=== PATIENT | female | born 1965 | race Caucasian/White ===

== ENCOUNTER 2019-06-14 07:29 | Outpatient (CLI) | payer OTHER, SELFPAY ==
[2019-06-14 07:44] LABS: Basophils Absolute Auto 0.04 K/mm3 (0.00-0.10); Basophils Percent Auto 0.5 % (0.0-1.0); Eosinophils Absolute Auto 0.21 K/mm3 (0.02-0.50); Eosinophils Percent Auto 2.8 % (1.0-6.0); Hemoglobin 12.8 g/dL (12.0-15.0); Immature Granulocyte Absolute 0.02 K/mm3 (0.00-0.00); Immature Granulocyte Percent A 0.3 % (0.0-0.0); Lymphocytes Absolute Auto 3.77 K/mm3 (1.10-4.50); Lymphocytes Percent Auto 50.6 % (18.0-42.0); Mean Corpuscular HGB Conc 33.7 g/dL (32.0-36.0); Mean Corpuscular Hemoglobin 35.5 pg (27.0-31.0); Mean Corpuscular Volume 105.3 fL (78.0-102.0); Mean Platelet Volume 10.4 fl (9.2-11.8); Monocytes Absolute Auto 0.58 K/mm3 (0.10-0.90); Monocytes Percent Auto 7.8 % (2.0-11.0); Neutrophils Absolute Auto 2.8 K/mm3 (1.7-7.2); Platelet Count Result 229 K/mm3 (150-420); Red Blood Count 3.61 M/mm3 (4.20-5.40); White Blood Count 7.5 K/mm3 (4.8-10.8)
[2019-06-14 08:02] LABS: Creatinine Urine 96.28 mg/dL (40-278); MALB Creatinine Ratio 8.7 mg/g (0-30); Microalbumin Urine Random 8.4 mg/L
[2019-06-14 08:44] LABS: Anion Gap 13.5 mmol/L (7-16); Blood Urea Nitrogen 14 mg/dL (7-18); Calcium 9.5 mg/dL (8.5-10.1); Carbon Dioxide 29 mmol/L (21-32); Chloride 103 mmol/L (98-108); Cholesterol 237 mg/dL (0-200); Estimated Glomerular Filt Rate > 60; Glucose 113 mg/dL (70-99); HDL Direct 59 mg/dL (40-60); LDL Cholesterol Calculated 144 mg/dL (<130); Osmolality Calculated 293 mOsm/kg (285-295); Potassium 4.5 mmol/L (3.5-5.1); Sodium 141 mmol/L (136-145); Triglycerides 172 mg/dL (0-150)
[2019-06-14 14:21] LABS: Vitamin B12 438 pg/mL (193-986)
[2019-06-14 14:23] LABS: Folic Acid > 20.0 ng/mL (8.6->20)
[2019-06-18 12:12] LABS: Vitamin D 25 Hydroxy 29 ng/mL (30-100)
== END 2019-06-14 07:30 | disposition home or self-care (01) ==
LOC: CHSLAB 07:33
PROVIDERS: PCP Family Medicine; Visit Provider Family Medicine
DX: E55.9 Vitamin D deficiency, unspecified (principal); I10 Essential (primary) hypertension; E53.8 Deficiency of other specified B group vitamins
CPT/HCPCS: 36415; 80048; 80061; 82043; 82306; 82607; 82746; 85025

== ENCOUNTER 2020-06-25 09:04 | Outpatient (RCR) | payer OTHER, SELFPAY ==
--- NOTE | 2020-06-25 10:10 | PTOPEVAL ---
Thank you for referring Katelyn Navarro to [facility]– [place].? The patient is scheduled to be seen for therapy? __2__x/week for 8 visits. Please review, sign, date and return this plan of care LIZZY. I agree with and certify that the following plan of care is medically necessary. Referring Physician Date Admitting Provider: Attending Provider: Vasquez Packer MD Referring Provider: *PT Outpatient Evaluation Start: 06/25/20 09:06 Freq: Status: Active Protocol: Document 06/25/20 09:06 [facility]INI (Rec: 06/25/20 10:10 SRINI [id number]) Therapy Assessment Status Assessment Status Assessment Status Evaluation Outpatient Past Medical History Cardiovascular History Hx Hypertension Yes Musculoskeletal History Hx Back Pain Yes Hx Fractures Yes: RIGHT ANKLE 10/2017 Reproductive History Hx Hysterectomy Yes: PARTIAL Pain History Has Past Pain Affected Your Daily Life Yes History of Long-Term Prescription Pain Yes: USE OF HYDROCODONE Medication Use (Opiates) ROUTINELY FOR CHRONIC NECK PAIN. Effective Methods of Pain Control TRIGGER POINT THERAPY TO NECK NEEDED, EPIDURAL INJECTIONS TO NECK PRN Other History Hx Other Surgeries Yes: RIGHT HAND Evaluation Information Problem Diagnosis cervical radiculopathy Onset 06/23/20 Subjective Information Pt. reports having 10 years of Query Text:As Reported By Patient/ worsening neck pain. She Family reports that she noted a recent increase in pain without any incident. Pt. reports that she has spent the past 1 1/2 years caring for her mother in law which she noted an increase in pain after. She states that she has also been less active due to caring for her mother in law. 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 She reports that she feels a lump on the left side of the neck and pain will shoot into the left arm. 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 She states that her goal is to de
--- NOTE | 2020-08-23 08:13 | PTOPEVAL ---
Thank you for referring Katelyn Navarro to [facility].? The patient is scheduled to be seen for therapy? ____x/week for ___ weeks. Please review, sign, date and return this plan of care LIZZY. I agree with and certify that the following plan of care is medically necessary. Referring Physician Date Admitting Provider: Attending Provider: Vasquez Packer MD Referring Provider: *PT Outpatient Evaluation Start: 06/25/20 09:06 Freq: Status: Active Protocol: Document 08/22/20 17:15 [facility] (Rec: 08/23/20 08:13 [facility] [id number]) Therapy Assessment Status Assessment Status Assessment Status Re-evaluation Outpatient Past Medical History Cardiovascular History Hx Hypertension Yes Musculoskeletal History Hx Back Pain Yes Hx Fractures Yes: RIGHT ANKLE 10/2017 Reproductive History Hx Hysterectomy Yes: PARTIAL Pain History Has Past Pain Affected Your Daily Life Yes History of Long-Term Prescription Pain Yes: USE OF HYDROCODONE Medication Use (Opiates) ROUTINELY FOR CHRONIC NECK PAIN. Effective Methods of Pain Control TRIGGER POINT THERAPY TO NECK NEEDED, EPIDURAL INJECTIONS TO NECK PRN Other History Hx Other Surgeries Yes: RIGHT HAND Evaluation Information Problem Diagnosis cervical radiculopathy Onset 06/23/20 Subjective Information patient reports she has been Query Text:As Reported By Patient/ away from therapy for several Family weeks due to work and other responsibilities. she reports prior to stepping away from therapy she was having some increased soreness with her exercises. patient reports a few times she has popped her own neck at home and it has hurt her more. Pain Assessment Timing of Pain Assessment Timing of Pain Assessment Assessment Pain Scale Pain Scale Used Numeric (1 - 10) Self Report Pain Assessment Left Neck Reported Pain Level 6 Pain Score Pain Score 6: Self Report Interventions Used Interventions Used By Clinicians Electrical Stimulation, Exercise,Heat Cervical and Lumbar ROM Cervical ROM Cervical Flexion (0-60) 55 Query Text:Active in Degrees Cervical Extension (0-70) 55 Query Text:Active in Degrees Cervical Lateral Flexion Right (0-50) 40 Query Text:Active in Degrees Cervical Lateral Flexion Left (0-50) 30 Query Text:Active in Degrees Cervical R
== END 2020-08-22 23:59 | disposition home or self-care (01) ==
LOC: CHSPT 09:04
PROVIDERS: PCP Family Medicine; Visit Provider Family Medicine
DX: M54.12 Radiculopathy, cervical region (principal)
CPT/HCPCS: 97014; 97110; 97140; 97161; G0283

== ENCOUNTER 2020-10-19 07:00 | Outpatient (CLI) | payer OTHER, SELFPAY ==
[2020-10-19 07:17] LABS: Basophils Absolute Auto 0.05 K/mm3 (0.00-0.10); Basophils Percent Auto 0.4 % (0.0-1.0); Eosinophils Absolute Auto 0.18 K/mm3 (0.02-0.50); Eosinophils Percent Auto 1.4 % (1.0-6.0); Hematocrit 40.7 % (35.0-49.0); Hemoglobin 13.9 g/dL (12.0-15.0); Immature Granulocyte Absolute 0.05 K/mm3 (0.00-0.00); Immature Granulocyte Percent A 0.4 % (0.0-0.0); Lymphocytes Absolute Auto 2.94 K/mm3 (1.10-4.50); Lymphocytes Percent Auto 22.2 % (18.0-42.0); Mean Corpuscular HGB Conc 34.2 g/dL (32.0-36.0); Mean Corpuscular Hemoglobin 34.2 pg (27.0-31.0); Mean Corpuscular Volume 100.2 fL (78.0-102.0); Mean Platelet Volume 9.4 fl (9.2-11.8); Monocytes Absolute Auto 0.76 K/mm3 (0.10-0.90); Monocytes Percent Auto 5.7 % (2.0-11.0); Neutrophils Absolute Auto 9.3 K/mm3 (1.7-7.2); Neutrophils Percent Auto 69.9 % (50.0-70.0); Platelet Count Result 387 K/mm3 (150-420); Red Blood Count 4.06 M/mm3 (4.20-5.40); Red Cell Distribution Width 11.9 % (11.6-14.4); White Blood Count 13.3 K/mm3 (4.8-10.8)
[2020-10-19 07:40] LABS: Creatinine Urine 120.34 mg/dL (40-278); MALB Creatinine Ratio 11.7 mg/g (0-30); Microalbumin Urine Random 14.2 mg/L
[2020-10-19 08:29] LABS: Alanine Aminotransferase 32 U/L (14-59); Albumin Level 4.1 g/dL (3.4-5.0); Alkaline Phosphatase 104 U/L (46-116); Anion Gap 12 mmol/L (8-16); Aspartate Amino Transferase 19 U/L (15-37); Bilirubin,Total 0.2 mg/dL (0.00-1.00); Blood Urea Nitrogen 9 mg/dL (7-18); Calcium 9.4 mg/dL (8.5-10.1); Carbon Dioxide 28 mmol/L (21-32); Chloride 101 mmol/L (98-108); Cholesterol 310 mg/dL (0-200); Estimated Glomerular Filt Rate > 60; Glucose 119 mg/dL (70-99); HDL Direct 48 mg/dL (40-60); LDL Cholesterol Calculated 166 mg/dL (<130); Osmolality Calculated 291 mOsm/kg (285-295); Potassium 4.2 mmol/L (3.5-5.1); Sodium 141 mmol/L (136-145); Thyroid Stimulating Hormone 0.93 uIU/mL (0.36-3.74); Total Protein 7.5 g/dL (6.4-8.2); Triglycerides 482 mg/dL (0-150)
[2020-10-19 08:37] LABS: LDL Cholesterol Direct 174 mg/dL (0-130)
[2020-10-23 09:53] LABS: Hemoglobin A1C 5.5 % (<5.7)
[2020-10-25 10:51] LABS: Vitamin D 25 Hydroxy 37 ng/mL (30-100)
== END 2020-10-19 07:01 | disposition home or self-care (01) ==
PROVIDERS: PCP Family Medicine; Visit Provider Family Medicine
DX: I10 Essential (primary) hypertension (principal); R73.01 Impaired fasting glucose
CPT/HCPCS: 36415; 80053; 80061; 82043; 82306; 83036; 83721; 84443; 85025

== ENCOUNTER 2020-12-19 07:32 | Outpatient (CLI) | payer OTHER, SELFPAY ==
--- NOTE | ~2020-12-19 | MR_ITS ---
EXAMINATION: MR cervical spine wo con EXAM DATE: 12/19/2020 08:27 INDICATION: Cervical Radiculopathy neck, bilateral arm pain. TECHNIQUE: Multi-sequential, multiplanar MR images of the cervical spine were obtained without contra st. Axial T2, axial T2 MERGE sequence. Sagittal T1, T2, T2 fat saturation images also obtained. Com parison is made to prior examination from 03/24/2018. FINDINGS: There is moderate disc disease at C5-6, mild to moderate at C6-7. The vertebral bodies are aligned in the AP dimension. The spinal cord signal intensity and intrinsic morphology is normal. Ce rvicomedullary junction is normal in appearance. There are no suspicious marrow signal abnormalities. Paraspinal soft tissue is unremarkable. Level by level evaluation: C2-C3: Disc does not extend beyond the endplate margin. Uncovertebral joint arthropathy: Mild left. Facet joint arthropathy: Mild bilateral. Neural foraminal stenosis: No stenosis. Central canal stenosis: No stenosis. C3-C4: Disc does not extend beyond the endplate margin. Uncovertebral joint arthropathy: Mild bilateral. Facet joint arthropathy: Mild to moderate bilateral. Neural foraminal stenosis: No stenosis. Central canal stenosis: No stenosis. C4-C5: Disc does not extend beyond the endplate margin. Uncovertebral joint arthropathy: Mild bilateral. Facet joint arthropathy: Mild to moderate bilateral. Neural foraminal stenosis: Mild to moderate left. Central canal stenosis: No stenosis. C5-C6: There is a mild diffuse disc bulge. Uncovertebral joint arthropathy: Moderate left, mild right. Facet joint arthropathy: Mild to moderate bilateral. Neural foraminal stenosis: Moderate to severe left, no right. Central canal stenosis: Mild. C6-C7: There is a minimal diffuse disc bulge. Uncovertebral joint arthropathy: Mild to moderate bilateral. Facet joint arthropathy: Mild bilateral. Neural foraminal stenosis: Moderate left, mild right. Central canal stenosis: No stenosis. C7-T1: Disc does not extend beyond the endplate margin. Uncovertebral joint arthropathy: Mild bilateral. Facet joint arthropathy: Mild bilateral. Neural foraminal stenosis: No stenosis. Central canal stenosis: No stenosis. Slight progression compared to prior study. IMPRESSION: Moderate midcervical spondylosis. Reviewed, dictated and finalized at location B.
== END 2020-12-19 07:33 | disposition home or self-care (01) ==
LOC: CHSIMG 07:34
PROVIDERS: PCP Family Medicine; Visit Provider Family Medicine
DX: M47.22 Other spondylosis with radiculopathy, cervical region (principal)
CPT/HCPCS: 72141

== ENCOUNTER 2020-12-29 03:15 | Emergency (ER) | payer OTHER, SELFPAY ==
--- NOTE | ~2020-12-29 | XR_ITS ---
EXAMINATION: XR chest 1V portable EXAM DATE: 12/29/2020 04:06 INDICATION: UPPER LEFT chest pain INTO SHOULDER . TECHNIQUE: Portable AP frontal chest x-ray was obtained. There is no prior study for comparison. FINDINGS: The lungs are clear. There are no pleural effusions. The cardiomediastinal silhouette is within normal limits. There is no pneumothorax suspected. The bones and soft tissues are unremarkab le. IMPRESSION: No acute cardiopulmonary findings. Reviewed, dictated and finalized at location A.
--- NOTE | 2020-12-29 03:18 | ECG_ITS ---
Measurements Intervals [place] Rate: 84 P: 70 WA: 181 QRS: 48 QRSD: 93 T: 72 QT: 390 QTc: 462 Interpretive Statements SINUS RHYTHM BASELINE ARTIFACT- I, II, III, AVR, AVL, AVF, V1-V2 BORDERLINE ECG Electronically Signed On 12-31-2020 7:51:51 CDT by Ashu Hawthorne D.O.
[2020-12-29 03:26] VITALS: BP 118/68; PULSE 68; RESP 18; TEMP 36.6; O2SAT 98
[2020-12-29] MEDS: SODIUM CHLORIDE 0.9% IV 500 ML 999 ML IV CONT (03:50)
[2020-12-29] MEDS: ASPIRIN 325 MG ENTERIC TABLET PO (03:51)
--- NOTE | 2020-12-29 03:51 | PC.NURSE ---
0351 Nitro held, pain free currently
--- NOTE | 2020-12-29 03:53 | ED.GENADULT ---
HPI - General Adult General Chief complaint: Unspecified Stated complaint: Pain sholder Time Seen by Provider: 12/29/20 03:28 Source: patient and RN notes reviewed Mode of arrival: ambulatory Limitations: no limitations History of Present Illness complaint: left chest pain x this early am. prior similar episode 1 week ago. Onset (ago): hour(s) (1) Location: chest Radiation: back, neck and extremity (left upper extremity) Severity: moderate Severity scale (1-10): 7 Quality: aching and dull Pain Consistency: constant Relieving factors: none Exacerbating factors: none Associated symptoms: other (left back, neck and left upper limb pain and tingling.) Related Data Home Medications Medication Instructions Recorded Confirmed amlodipine 10 mg PO DAILY 03/16/19 12/29/20 cyclobenzaprine 10 mg PO DAILY 03/16/19 12/29/20 gabapentin 300 mg PO DAILY 03/16/19 12/29/20 hydrocodone-acetaminophen 1 tablet PO PRN 03/16/19 12/29/20 lisinopril-hydrochlorothiazide 1 tablet PO DAILY 03/16/19 12/29/20 lorazepam 0.5 mg PO HS 03/16/19 12/29/20 Allergies Allergy/AdvReac Type Severity Reaction Status Date / Time No Known Allergies Allergy Verified 03/16/19 07:47 Review of Systems Review of Systems: All systems reviewed & are unremarkable except as noted in HPI and below Cardiovascular: Cardiovascular: Reports as per HPI [facility] Past Medical History Medical History (Updated 12/29/20 @ 06:55 by Fiorella Dalton MD) Hypertension Neck arthritis Family History Family History (Updated 12/15/13 @ 07:13 by DOCTOR UNKNOWN) Father Hypertension Grandparent Hypertension Social History Social History Smoking status: Light tobacco smoker Smoking end date: 04/20/14 Alcohol intake: current Exam Const: General: cooperative and healthy appearing Nutritional Appearance: well nourished Orientation/consciousness: patient oriented x3 Limitations: no limitations HENMT: Head: normocephalic and atraumatic Ears: hearing grossly normal bilaterally and TM's normal bilaterally General nose exam: Normal external nose present and Normal nares present Face and sinus: normal facial exam Mouth: Yes Normal oral and palatal mucosa present, Yes lip normal, Yes tongue normal and Yes moist mucous membranes Teeth and gingiva: dentition normal Throat: posterior oropharynx normal Eyes: General: appearance normal, both eyes and all related structures Eyelids: eyelids normal Conjunctivae: conjunctivae normal Sclera: sclerae normal Cornea: corneas normal Pupils: Equal, round and reactive pupils present EOM: EOMs intact bilaterally Neck: Neck: normal visual inspection and full ROM Chest: Chest palpation & inspection: normal inspection of the chest Resp: Effort & Inspection: normal respiratory effort and able to speak in complete sentences Auscultation: clear to auscultation bilaterally Percussion: percussion normal Cardio: Jugular venous distension: no JVD Rate: regular rate Rhythm: regular rhythm Peripheral pulses: Peripheral pulses 2+ throughout GI: Inspection: normal to inspection GI Palp: Yes Soft to palpation Auscultation: normal bowel sounds Back/Spine/Pelvis: Back: no CVA tenderness Cervical Spine: cervical ROM normal Thoracic/Lumbar Spine: thoracic and lumbar spine normal to inspection Skin: General skin exam: normal color and no rashes or lesions noted Neuro: General: oriented to person, oriented to place and oriented to time Cranial nerves: Yes CN's II-XII intact bilaterally, Yes Equal, round and reactive pupils present and Yes Bilaterally intact EOM present Cognition (Neuro): normal cognition Speech: normal speech Motor exam (neuro): 5/5 motor strength present throughout Sensory Exam: normal sensation Extrem: General: normal to inspection, full ROM and no pedal edema Psych: Appearance: grossly normal and well kempt Mental Status: mental status grossly normal Speech and movement: Normal speech and movem
[2020-12-29 04:09] LABS: Basophils Absolute Auto 0.06 K/mm3 (0.00-0.10); Basophils Percent Auto 0.6 % (0.0-1.0); Hematocrit 38.3 % (35.0-49.0); Hemoglobin 13.5 g/dL (12.0-15.0); Immature Granulocyte Absolute 0.03 K/mm3 (0.00-0.00); Immature Granulocyte Percent A 0.3 % (0.0-0.0); Lymphocytes Absolute Auto 4.09 K/mm3 (1.10-4.50); Lymphocytes Percent Auto 40.2 % (18.0-42.0); Mean Corpuscular HGB Conc 35.2 g/dL (32.0-36.0); Mean Corpuscular Hemoglobin 34.5 pg (27.0-31.0); Mean Platelet Volume 9.8 fl (9.2-11.8); Monocytes Percent Auto 7.9 % (2.0-11.0); Platelet Count Result 284 K/mm3 (150-420); Red Blood Count 3.91 M/mm3 (4.20-5.40); Red Cell Distribution Width 12.1 % (11.6-14.4); White Blood Count 10.2 K/mm3 (4.8-10.8)
[2020-12-29 04:25] LABS: Alanine Aminotransferase 38 U/L (14-59); Albumin Level 4.1 g/dL (3.4-5.0); Alkaline Phosphatase 93 U/L (46-116); Anion Gap 13 mmol/L (8-16); Aspartate Amino Transferase 29 U/L (15-37); Bilirubin,Total 0.4 mg/dL (0.00-1.00); Blood Urea Nitrogen 33 mg/dL (7-18); Calcium 9.3 mg/dL (8.5-10.1); Carbon Dioxide 23 mmol/L (21-32); Chloride 97 mmol/L (98-108); Estimated CRCL calculation 30 ml/min; Estimated Glomerular Filt Rate 33; Glucose 106 mg/dL (70-99); Lactic Acid Reflex 0.4 mmol/L (0.4-2.0); Osmolality Calculated 283 mOsm/kg (285-295); Potassium 3.4 mmol/L (3.5-5.1); Sodium 133 mmol/L (136-145); Total Protein 7.8 g/dL (6.4-8.2); Troponin I 26.3 ng/L (0.00-60.4)
[2020-12-29 04:29] LABS: SARS-CoV-2 Ag Negative (Negative)
[2020-12-29 04:30] LABS: Ethanol < 3 mg/dL (0-6)
[2020-12-29 04:46] VITALS: BP 116/60; PULSE 70; RESP 18
[2020-12-29 05:31] VITALS: BP 120/66; PULSE 78; RESP 16; O2SAT 96
[2020-12-29 06:20] VITALS: BP 116/80; PULSE 70; RESP 18; TEMP 36.6; O2SAT 96
--- NOTE | 2020-12-29 06:22 | PC.NURSE ---
cont pain free, on cell phone talking & laughing
[2020-12-29 06:57] VITALS: BP 115/80; PULSE 60; RESP 16; TEMP 36.4; O2SAT 99
== END 2020-12-29 07:01 | disposition home or self-care (01) ==
PROVIDERS: Emergency Provider Emergency Medicine; PCP Family Medicine
DX: I20.9 Angina pectoris, unspecified (principal); M47.812 Spondylosis without myelopathy or radiculopathy, cervical region; Z20.822 Contact with and (suspected) exposure to COVID-19
CPT/HCPCS: 36415; 71045; 80053; 80307; 83605; 84484; 85025; 87426; 93005; 99283; 99284; A9270; C9803; J7040

== ENCOUNTER 2021-01-28 09:10 | Outpatient (CLI) | payer OTHER, SELFPAY ==
--- NOTE | 2021-01-28 09:15 | EST_ITS ---
Patient Info Name: Katelyn Navarro Age: 56 years : 1965 Gender: Female Ht: 65 in Wt: 149 lbs BSA: 1.77 m2 HR: 92 bpm BP: 144 / 89 mmHg Heart Rhythm: Sinus Rhythm Technical Quality: Excellent Exam Date: 01/28/2021 9:29 AM Exam Location: [facility] Patient Status: Outpatient Admit Date: 01/28/2021 Staff Ordering Physician: Vasquez Packer MD Attending Provider: Vasquez Packer MD Exercise Technologist: Kay Steele CRT Exercise Physician: Michelle Freitas CEP Exam Type: CA stress test treadmill Study Info Indications AtypicalChestPain - An exercise stress test was performed. History/Risk Factors Hypertension: Yes Tobacco Use: Former Dialysis: None History/Risk Factors HTN. Former Smoker (quit 2011). Summary 1. 1. Negative Toribio exercise stress test for ischemic ST changes by ECG criteria. 2. 2. Good functional capacity, achieving 10 METs of workload. 3. 3. Baseline hypertension with hypertensive response to exercise. 4. 4. Appropriate HR response to exercise. 5. 5. Appropriate HR recovery at 1 minute post exercise. 6. 6. No imaging with stress testing. Protocol: Toribio Stress ECG Details Stage: REST Duration (min): 1 min : 44 sec Speed (mph): 0.0 Grade (%): 0 HR (bpm): 92 SBP (mmHg): 144 DBP (mmHg): 89 METS: --- Stage: REST Duration (min): 2 min : 39 sec Speed (mph): 0.0 Grade (%): 0 HR (bpm): 96 SBP (mmHg): 144 DBP (mmHg): 89 METS: --- Stage: STAGE 1 Duration (min): 1 min : 0 sec Speed (mph): 1.7 Grade (%): 10 HR (bpm): 110 SBP (mmHg): 144 DBP (mmHg): 89 METS: --- Stage: STAGE 1 Duration (min): 2 min : 0 sec Speed (mph): 1.7 Grade (%): 10 HR (bpm): 125 SBP (mmHg): 144 DBP (mmHg): 89 METS: --- Stage: STAGE 1 Duration (min): 3 min : 0 sec Speed (mph): 1.7 Grade (%): 10 HR (bpm): 130 SBP (mmHg): 186 DBP (mmHg): 92 METS: --- Stage: STAGE 2 Duration (min): 1 min : 0 sec Speed (mph): 2.5 Grade (%): 12 HR (bpm): 138 SBP (mmHg): 186 DBP (mmHg): 92 METS: --- Stage: STAGE 2 Duration (min): 2 min : 0 sec Speed (mph): 2.5 Grade (%): 12 HR (bpm): 146 SBP (mmHg): 186 DBP (mmHg): 92 METS: --- Stage: STAGE 2 Duration (min): 3 min : 0 sec Speed (mph): 2.5 Grade (%): 12 HR (bpm): 152 SBP (mmHg): 201 DBP (mmHg): 95 METS: --- Stage: STAGE 3 Duration (min): 1 min : 0 sec Speed (mph): 3.4 Grade (%): 14 HR (bpm): 156 SBP (mmHg): 201 DBP (mmHg): 95 METS: --- Stage: STAGE 3 Duration (min): 2 min : 0 sec Speed (mph): 3.4 Grade (%): 14 HR (bpm): 162 SBP (mmHg): 201 DBP (mmHg): 95 METS: --- Stage: STAGE 3 Duration (min): 3 min : 0 sec Speed (mph): 3.4 Grade (%): 14 HR (bpm): 163 SBP (mmHg): 197 DBP (mmHg): 91 METS: ---
== END 2021-01-28 09:11 | disposition home or self-care (01) ==
LOC: CHSCARD 09:13
PROVIDERS: PCP Family Medicine; Visit Provider Family Medicine
DX: R07.9 Chest pain, unspecified (principal); F41.9 Anxiety disorder, unspecified
CPT/HCPCS: 93017

== ENCOUNTER 2021-04-30 09:49 | Outpatient (CLI) | payer OTHER, SELFPAY ==
--- NOTE | ~2021-04-30 | MR_ITS ---
EXAMINATION: MR brain/brain stem wo con DATE: 04/30/2021 10:37 INDICATION: Frontoparietal headache. TECHNIQUE: Magnetic resonance imaging (MRI) of the brain and brainstem was performed without intraven ous contrast. Sequences included sagittal and axial T1-weighted FSE, axial diffusion-weighted FS EPI, axial T2*-weighted GRE, axial T2-weighted FLAIR Propeller, and axial T2-weighted Propeller. Apparent diffusion coefficient (ADC) maps were created. COMPARISON: None. FINDINGS: There is no acute infarction or abnormal intracranial mass lesion. There are punctate foci of microhemorrhage in right thalamus. There are scattered areas of nonspecific increased T2-weighted signal intensity in the cerebral white matter. The ventricles are normal in size. There are trace uzair ateral mastoid effusions. The orbits are normal. There is mild mucosal thickening in left maxillary s inus. IMPRESSION: 1. Mild nonspecific cerebral white matter disease and punctate foci of microhemorrhage in right thala mus, likely mild chronic hypertensive encephalopathy. Reviewed, dictated and finalized at location B. DE SALES COORDINATOR IMPRESSION: 1. Mild nonspecific cerebral white matter disease and punctate foci of microhem orrhage in right thalamus, likely mild chronic hypertensive encephalopathy.
--- NOTE | ~2021-04-30 | US_ITS ---
EXAMINATION: US soft tissue head and neck DATE: 04/30/2021 10:42 INDICATION: Nontoxic single thyroid nodule. TECHNIQUE: Multiple ultrasound images of the thyroid were obtained. COMPARISON: Ultrasound 07/11/2016, 10/15/2015 FINDINGS: The right thyroid lobe measures 4.0 x 1.4 x 1.6 cm. The left thyroid lobe measures 4.4 x 1.2 x 1.3 c m. In the left thyroid lobe, there is an 8 mm solid, hypoechoic, [id number] nodule with smooth margin without echogenic foci (TI-RADS TR4). IMPRESSION: 1. Small thyroid nodule, likely not clinically significant. No follow-up is needed. Reviewed, dictated and finalized at location B. TOP PUBLISHING SPECIALIST IMPRESSION: 1. Small thyroid nodule, likely not clinically significant. No follow-up is nee ded.
--- NOTE | ~2021-04-30 | MM_ITS ---
EXAMINATION: MM screening abelardo BI w blayne HISTORY: Screening TECHNIQUE: Craniocaudal and mediolateral oblique 3-D tomosynthesis images were obtained and synthetic 2-D images were generated. CAD analysis was submitted and interpreted. COMPARISON: 10/15/2015 BREAST PARENCHYMAL COMPOSITION: There are scattered areas of fibroglandular density. FINDINGS: There is no evidence of suspicious mass, calcification, or architectural distortion to sugg est malignancy in either breast. There has been no suspicious interval change. IMPRESSION: 1. No mammographic evidence of malignancy. 2. Recommend routine screening mammography in one year. BI-RADS Category 1: Negative Reviewed, dictated and finalized at location A. MECHANICAL TECHNICIAN
== END 2021-04-30 09:50 | disposition home or self-care (01) ==
LOC: CHSIMG 09:51
PROVIDERS: PCP Family Medicine; Visit Provider Family Medicine
DX: R51.9 Headache, unspecified (principal); E04.1 Nontoxic single thyroid nodule; Z12.31 Encounter for screening mammogram for malignant neoplasm of breast
CPT/HCPCS: 70551; 76536; 77063; 77067

== ENCOUNTER 2021-05-28 13:56 | Outpatient (CLI) | payer OTHER, SELFPAY ==
--- NOTE | 2021-05-28 14:02 | ECHO_ITS ---
Patient Info Name: Katelyn Navarro Age: 56 years : 1965 Gender: Female Ht: 65 in Wt: 150 lbs BSA: 1.78 m2 HR: 74 bpm BP: 139 / 81 mmHg Technical Quality: Good Exam Date: 05/28/2021 2:50 PM Exam Location: [facility] Patient Status: Outpatient Admit Date: 05/28/2021 Staff Ordering Physician: Ashu Hawthorne DO Production Control Planner: Hailey Coronel Attending Provider: Ashu Hawthorne DO Referring Physician: Christoph BAKER; Exam Type: CA echo doppler color flow Study Info Indications R01.1 - Cardiac murmur, unspecified Complete two-dimensional, color flow and Doppler transthoracic echocardiogram is performed. Strain analysis performed. History/Risk Factors Hypertension: Yes Tobacco Use: Former Dialysis: None Summary 1. Complete two-dimensional, color flow and Doppler transthoracic echocardiogram is performed. 2. Ventricular septum is sigmoid shaped. No LVOT obstruction. Consider hypertrophic cardiomyopathy. 3. Left ventricular systolic function is normal, estimated at 65-70%. 4. The left ventricular diastolic function is grade I diastolic dysfunction. 5. Left ventricular chamber dimension is normal. 6. E/e' 7 is not elevated. 7. Global longitudinal strain is normal at -18.0%. 8. There is trace aortic valve regurgitation. 9. Moderate systolic anterior motion of mitral valve. 10. No pulmonary hypertension, estimated pulmonary arterial systolic pressure is 23 mmHg. Left Ventricle Ventricular septum is sigmoid shaped. No LVOT obstruction. Consider hypertrophic cardiomyopathy. E/e' 7 is not elevated. Global longitudinal strain is normal at -18.0%. Left ventricular chamber dimension is normal. Left ventricular systolic function is normal, estimated at 65-70%. The left ventricular diastolic function is grade I diastolic dysfunction. Right Ventricle Right ventricular chamber dimension is normal. Right ventricular systolic function is normal. Left Atria Left atrial chamber dimension is normal. Right Atria Right atrial chamber dimension is normal. Aortic Valve The aortic valve is trileaflet. There is no aortic valve stenosis. There is trace aortic valve regurgitation. Pulmonic Valve There is no pulmonic regurgitation. Mitral Valve Moderate systolic anterior motion of mitral valve. There is no mitral valve stenosis. There is no mitral valve regurgitation. Tricuspid Valve There is no tricuspid valve regurgitation. No pulmonary hypertension, estimated pulmonary arterial systolic pressure is 23 mmHg. Pericardium/Pleural There is no pericardial effusion. Inferior Vena Cava Normal inferior vena cava with >50% collapse upon inspiration consistent with normal right atrial pressure, 5 mmHg. Aorta The aortic root size at the sinus of Valsalva is normal. Left Ventricular Outflow Tract Name Value Normal LVOT 2D LVOT Diameter 2.0 cm LVOT Doppler LVOT Peak Velocity 135 cm/s LVOT Peak Gradient 7 mmHg LVOT Mean Gradient 5 mmHg LVOT VTI 26 cm LV
== END 2021-05-28 13:57 | disposition home or self-care (01) ==
LOC: CHSIMG 13:58
PROVIDERS: PCP Family Medicine; Visit Provider Internal Medicine Cardiovascular Disease
DX: R01.1 Cardiac murmur, unspecified (principal)
CPT/HCPCS: 93306

== ENCOUNTER 2021-08-09 10:49 | Outpatient (CLI) | payer OTHER, SELFPAY ==
[2021-08-09 11:14] LABS: Basophils Absolute Auto 0.05 K/mm3 (0.00-0.10); Basophils Percent Auto 0.5 % (0.0-1.0); Eosinophils Absolute Auto 0.15 K/mm3 (0.02-0.50); Eosinophils Percent Auto 1.4 % (1.0-6.0); Hematocrit 43.3 % (35.0-49.0); Hemoglobin 14.6 g/dL (12.0-15.0); Immature Granulocyte Absolute 0.03 K/mm3 (0.00-0.00); Immature Granulocyte Percent A 0.3 % (0.0-0.0); Lymphocytes Absolute Auto 3.17 K/mm3 (1.10-4.50); Lymphocytes Percent Auto 29.8 % (18.0-42.0); Mean Corpuscular HGB Conc 33.7 g/dL (32.0-36.0); Mean Corpuscular Hemoglobin 34.1 pg (27.0-31.0); Mean Corpuscular Volume 101.2 fL (78.0-102.0); Mean Platelet Volume 10.2 fl (9.2-11.8); Monocytes Absolute Auto 0.58 K/mm3 (0.10-0.90); Monocytes Percent Auto 5.5 % (2.0-11.0); Neutrophils Absolute Auto 6.7 K/mm3 (1.7-7.2); Neutrophils Percent Auto 62.5 % (50.0-70.0); Platelet Count Result 392 K/mm3 (150-420); Red Blood Count 4.28 M/mm3 (4.20-5.40); White Blood Count 10.6 K/mm3 (4.8-10.8)
[2021-08-09 12:12] LABS: Alanine Aminotransferase 34 U/L (14-59); Albumin Level 4.4 g/dL (3.4-5.0); Alkaline Phosphatase 91 U/L (46-116); Anion Gap 8 mmol/L (8-16); Aspartate Amino Transferase 22 U/L (15-37); Bilirubin Direct 0.1 mg/dL (0-0.2); Bilirubin,Total 0.4 mg/dL (0.00-1.00); Blood Urea Nitrogen 10 mg/dL (7-18); Calcium 9.7 mg/dL (8.5-10.1); Carbon Dioxide 28 mmol/L (21-32); Chloride 99 mmol/L (98-108); Cholesterol 250 mg/dL (0-200); Estimated Glomerular Filt Rate > 60; Free T4 Free Thyroxine 0.83 ng/dL (0.76-1.46); Glucose 106 mg/dL (70-99); HDL Direct 60 mg/dL (40-60); LDL Cholesterol Calculated 149 mg/dL (<130); Magnesium 1.8 mg/dL (1.8-2.4); Osmolality Calculated 279 mOsm/kg (285-295); Potassium 4.3 mmol/L (3.5-5.1); Sodium 135 mmol/L (136-145); Thyroid Stimulating Hormone 0.58 uIU/mL (0.36-3.74); Total Protein 7.6 g/dL (6.4-8.2); Triglycerides 203 mg/dL (0-150)
[2021-08-09 12:33] LABS: HIV 1 P24 AG Negative (Negative); HIV 1/2 AB Negative (Negative)
[2021-08-11 18:11] LABS: RPR Screen Non-Reactive (Non-Reactive)
[2021-08-13 01:15] LABS: Vitamin D 1,25 (OH)2 Total 48 pg/mL (18-72); Vitamin D2 1,25 (OH)2 <8 pg/mL; Vitamin D3 1,25 (OH)2 48 pg/mL
[2021-08-13 03:56] LABS: Hepatitis A Antibody IgM Nonreactive; Hepatitis B Core Antibody Nonreactive (Nonreactive); Hepatitis B Surface Antigen Nonreactive (Nonreactive); Hepatitis C Signal to Cutoff 0.07 ratio (<1.00); Hepatitis C Virus Antibody Nonreactive (Nonreactive)
[2021-08-13 18:18] LABS: Vitamin D 25 Hydroxy 37 ng/mL (30-100)
[2021-08-14 20:06] LABS: HSV 1 IgM Screen Negative (Negative); HSV 2 IgM Screen Negative (Negative)
[2021-08-15 10:24] LABS: Hemoglobin A1C 5.4 % (<5.7)
== END 2021-08-09 10:50 | disposition home or self-care (01) ==
LOC: CHSLAB 10:53
PROVIDERS: PCP Internal Medicine; Visit Provider Internal Medicine Cardiovascular Disease
DX: E78.5 Hyperlipidemia, unspecified (principal); R73.9 Hyperglycemia, unspecified; E55.9 Vitamin D deficiency, unspecified; F41.9 Anxiety disorder, unspecified; E04.1 Nontoxic single thyroid nodule
CPT/HCPCS: 36415; 80053; 80061; 80074; 80076; 82248; 82306; 82652; 83036; 83735; 84439; 84443; 85025; 86592; 86695; 86696; 86703

== ENCOUNTER 2021-11-11 17:35 | Outpatient (NON) | payer OTHER, SELFPAY | END 2021-11-11 17:36 | disposition home or self-care (01) | LOC: CHSLAB 17:36 | PROVIDERS: Visit Provider Family Medicine | DX: R30.0 Dysuria (principal) | CPT/HCPCS: 87077; 87086; 87088; 87186; 87491; 87591; 87661 ==

== ENCOUNTER 2022-08-23 09:23 | Outpatient (CLI) | payer OTHER, SELFPAY ==
--- NOTE | ~2022-08-23 | MR_ITS ---
EXAMINATION: MR cervical spine wo/w con DATE: 08/23/2022 12:29 INDICATION: Neck pain radiating to the left shoulder. TECHNIQUE: Magnetic resonance imaging (MRI) of the cervical spine was performed without and with 10 m L MultiHance intravenous contrast. COMPARISON: Cervical spine MRI 12/19/2020 FINDINGS: There is 4 degrees dextrocurvature of cervical spine. There is 2 mm retrolisthesis of C5 on C6. Vertebral body heights are normal. There is severely decreased disc height at C5-C6 and moderate ly decreased disc height at C6-C7. The spinal cord signal intensity is normal. The following disc lev els are specifically discussed: C2-C3: The disc does not extend beyond the endplate margin. There is mild left uncovertebral joint os teoarthritis. There is moderate right and mild left facet joint osteoarthritis. There is mild left ne ural foraminal stenosis. There is no central canal stenosis. C3-C4: The disc does not extend beyond the endplate margin. There is mild left uncovertebral joint os teoarthritis. There is severe right and moderate left facet joint osteoarthritis. There is mild left neural foraminal stenosis. There is no central canal stenosis. C4-C5: The disc is bulging. There is mild bilateral uncovertebral joint osteoarthritis. There is mode rate bilateral facet joint osteoarthritis. There is mild right and moderate left neural foraminal nahomy nosis. There is mild central canal stenosis. C5-C6: The disc is bulging. There is severe bilateral uncovertebral joint osteoarthritis. There is mo derate left facet joint osteoarthritis. There is mild right and moderate left neural foraminal stenos is. There is mild central canal stenosis. C6-C7: The disc is bulging. There is mild right and severe left uncovertebral joint osteoarthritis. T here is mild bilateral facet joint osteoarthritis. There is mild left neural foraminal stenosis. Ther e is mild central canal stenosis. C7-T1: The disc does not extend beyond the endplate margin. There is no uncovertebral joint osteoarth ritis. There is mild bilateral facet joint osteoarthritis. There is no neural foraminal stenosis. The re is no central canal stenosis. IMPRESSION: 1. Severe cervical spondylosis, stable from 12/19/2020. Reviewed, dictated and finalized at location A.
== END 2022-08-23 09:24 | disposition home or self-care (01) ==
LOC: CHSIMG 09:24
PROVIDERS: PCP Family Medicine
DX: M54.12 Radiculopathy, cervical region (principal); M43.02 Spondylolysis, cervical region
CPT/HCPCS: 72156; A9577

== ENCOUNTER 2022-12-23 10:12 | Outpatient (RCR) | payer OTHER, SELFPAY ==
--- NOTE | 2022-12-23 14:26 | OPREHPOC ---
Outpatient Therapy Plan of Care This is a Multidisciplinary Plan of Care that may contain components documented by all disciplines (PT, OT, and ST.) PT Problem 1 PT Problem #1 Knowledge Deficit PT Goal 1 Goal 1. Patient to demonstrate independence with HEP to improve progress made in PT. Target Visit 5 PT Problem 2 PT Problem #2 Impaired Range of Motion PT Goal 1 Goal 1. Patient to improve L lateral flexion AROM to 13 degrees or greater to improve neck mobility. Target Visit 5 PT Goal 2 Goal 1. patient to improve bilateral cervical sidebending to 20 degrees or better 2. patient to improve bilateral cervical rotation to 65 degrees or better Target Visit 10 PT Problem 3 PT Problem #3 Impaired Strength PT Goal 1 Goal 1. Patient to improve L UE strength to 4+/5 or greater overall to allow for patient to molded goods spot picker laundry basket to waist height without difficulty. Target Visit 10 PT Problem 4 PT Problem #4 Pain PT Goal 1 Goal 1. Patient to report pain as 4/10 at worst to improve her tolerance to perform cleaning activities in her home. Target Visit 10 PT Problem 5 PT Problem #5 Impaired Functional Mobil PT Goal 1 Goal 1. Patient to improve NDI score to 20% or less functional decline to improve her tolerance for activities in the home and community. 2. patient to return to home cleaning without increased pain 3. patient to walk dog without pain or symptoms Target Visit 10
--- NOTE | 2022-12-23 14:26 | PTOPEVAL1 ---
Assessment and note entered by JT File, PT Evaluation Information Assessment Status Evaluation Diagnosis neck pain Onset 12/18/22 Subjective Information Patient reports having pain in her neck for twenty years, but that recently increased signficiantly after helping her lift and move tin sheets over the weekend. She notes no specific injuries to the neck in the past. She reports that having an MRI done a few months ago, showing compressed nerves throughout the cervical spine. She notes that her neurologist suggested she try dry needling to address the increased pain levels. Patient reports having frequent headaches, but denies the presence of one currently. She notes numbness and tingling in the L UE for the past two years. She states that any overhead activities, repeated movements, or lifting items will increase the pain. She notes performing resistance band and stretching exercises at home, which have helped to reduce neck stiffness. She states that her UEs feel weak, and she has recently had difficulty vaccuming in her home and walking her larger dog. Reported Pain Level Pain Score 7: Self Report Assessment PT Clinical Summary Katelyn Navarro is a 57 y/o female who presents to skilled PT for neck pain. She demonstrates limited cervical ROM and L UE strength. She notes having numbness and tingling present in the L UE as well as occasional headaches. Patient currently has 42% functional decline as assessed by the NDI. She has difficulty performing daily activities in her home and community that she previously could tolerate, such as cleaning, lifting, and playing with her grandchild. Patient would benefit from continued skilled therapy to address ROM, pain, strength, and posture to return to prior level of function. Plan of Care Interventions Electrical Stimulation,Hot Pack/Cold Pack,Manual Therapy,Neuro Re-education,Patient/Caregiver Educati,Therapeutic Activities,Therapeutic Exercise PT Services Indicated Yes Treatment Frequency and 3x/week for 10 visits Duration These treatments will address the objective and functional deficits as defined above. The patient will be advanced safely and appropriately in order for the patient to progress towards his/her prior level of function. Additional exercises will be int
== END 2022-12-31 11:08 | disposition home or self-care (01) ==
LOC: CHSPT 10:12
PROVIDERS: PCP Family Medicine; Visit Provider Family Medicine
DX: M54.2 Cervicalgia (principal)
CPT/HCPCS: 97014; 97110; 97140; 97161; G0283

== ENCOUNTER 2023-03-31 12:57 | Outpatient (CLI) | payer OTHER, SELFPAY ==
[2023-03-31 13:18] LABS: Basophils Absolute Auto 0.05 K/mm3 (0.00-0.10); Basophils Percent Auto 0.5 % (0.0-1.0); Eosinophils Absolute Auto 0.09 K/mm3 (0.02-0.50); Eosinophils Percent Auto 0.8 % (1.0-6.0); Hematocrit 43.8 % (35.0-49.0); Hemoglobin 15.6 g/dL (12.0-15.0); Immature Granulocyte Absolute 0.05 K/mm3 (0.00-0.00); Immature Granulocyte Percent A 0.5 % (0.0-0.0); Lymphocytes Absolute Auto 3.75 K/mm3 (1.10-4.50); Lymphocytes Percent Auto 34.4 % (18.0-42.0); Mean Corpuscular HGB Conc 35.6 g/dL (32.0-36.0); Mean Corpuscular Hemoglobin 35.1 pg (27.0-31.0); Mean Corpuscular Volume 98.6 fL (78.0-102.0); Mean Platelet Volume 9.7 fl (9.2-11.8); Monocytes Absolute Auto 0.88 K/mm3 (0.10-0.90); Monocytes Percent Auto 8.1 % (2.0-11.0); Neutrophils Absolute Auto 6.1 K/mm3 (1.7-7.2); Neutrophils Percent Auto 55.7 % (50.0-70.0); Platelet Count Result 346 K/mm3 (150-420); Red Blood Count 4.44 M/mm3 (4.20-5.40); Red Cell Distribution Width 11.6 % (11.6-14.4); White Blood Count 10.9 K/mm3 (4.8-10.8)
[2023-03-31 13:26] LABS: Creatinine Urine 150.53 mg/dL (40-278); MALB Creatinine Ratio 12.2 mg/g (0-30); Microalbumin Urine Random 18.5 mg/L
[2023-03-31 14:00] LABS: Alanine Aminotransferase 40 U/L (14-59); Alkaline Phosphatase 121 U/L (46-116); Anion Gap 8 mmol/L (8-16); Aspartate Amino Transferase 41 U/L (15-37); Bilirubin,Total 0.6 mg/dL (0.00-1.00); Blood Urea Nitrogen 17 mg/dL (7-18); Calcium 9.2 mg/dL (8.5-10.1); Carbon Dioxide 28 mmol/L (21-32); Chloride 93 mmol/L (98-108); Estimated Glomerular Filt Rate 60; Glucose 113 mg/dL (70-99); Osmolality Calculated 270 mOsm/kg (285-295); Potassium 4.3 mmol/L (3.5-5.1); Sodium 129 mmol/L (136-145); Thyroid Stimulating Hormone 0.86 uIU/mL (0.36-3.74); Total Protein 7.5 g/dL (6.4-8.2)
== END 2023-03-31 12:58 | disposition home or self-care (01) ==
LOC: CHSLAB 13:00
PROVIDERS: PCP Family Medicine; Visit Provider Family Medicine
DX: I10 Essential (primary) hypertension (principal)
CPT/HCPCS: 36415; 80053; 82043; 84443; 85025

== ENCOUNTER 2023-05-06 17:52 | Outpatient (CLI) | payer OTHER, SELFPAY ==
[2023-05-06 18:59] LABS: Anion Gap 11 mmol/L (8-16); Blood Urea Nitrogen 18 mg/dL (7-18); Calcium 8.9 mg/dL (8.5-10.1); Carbon Dioxide 25 mmol/L (21-32); Chloride 101 mmol/L (98-108); Estimated Glomerular Filt Rate 60; Glucose 106 mg/dL (70-99); Osmolality Calculated 285 mOsm/kg (285-295); Potassium 3.8 mmol/L (3.5-5.1); Sodium 137 mmol/L (136-145)
== END 2023-05-06 17:53 | disposition home or self-care (01) ==
LOC: CHSLAB 17:54
PROVIDERS: PCP Family Medicine; Visit Provider Family Medicine
DX: E87.1 Hypo-osmolality and hyponatremia (principal)
CPT/HCPCS: 36415; 80048

== ENCOUNTER 2024-03-23 08:29 | Outpatient (CLI) | payer OTHER, SELFPAY ==
[2024-03-23 08:55] LABS: Basophils Absolute Auto 0.05 K/mm3 (0.00-0.10); Basophils Percent Auto 0.5 % (0.0-1.0); Eosinophils Absolute Auto 0.24 K/mm3 (0.02-0.50); Eosinophils Percent Auto 2.3 % (1.0-6.0); Hematocrit 42.6 % (35.0-49.0); Hemoglobin 15.2 g/dL (12.0-15.0); Immature Granulocyte Absolute 0.04 K/mm3 (0.00-0.00); Immature Granulocyte Percent A 0.4 % (0.0-0.0); Lymphocytes Absolute Auto 2.83 K/mm3 (1.10-4.50); Lymphocytes Percent Auto 27.3 % (18.0-42.0); Mean Corpuscular HGB Conc 35.7 g/dL (32-36); Mean Corpuscular Hemoglobin 35.3 pg (27.0-31.0); Mean Corpuscular Volume 98.8 fL (78.0-102.0); Mean Platelet Volume 9.8 fl (9.2-11.8); Monocytes Absolute Auto 0.76 K/mm3 (0.10-0.90); Monocytes Percent Auto 7.3 % (2.0-11.0); Neutrophils Absolute Auto 6.46 K/mm3 (1.70-7.20); Neutrophils Percent Auto 62.2 % (50.0-70.0); Platelet Count Result 311 K/mm3 (150-420); Red Blood Count 4.31 M/mm3 (4.20-5.40); White Blood Count 10.4 K/mm3 (4.8-10.8)
[2024-03-23 09:25] LABS: Creatinine Urine 34.55 mg/dL (40-278); MALB Creatinine Ratio 37.6 mg/g (0-30); Microalbumin Urine Random < 13.0 mg/L
[2024-03-23 10:08] LABS: Alanine Aminotransferase 31 U/L (14-59); Albumin Level 3.8 g/dL (3.4-5.0); Alkaline Phosphatase 114 U/L (46-116); Anion Gap 8 mmol/L (4-12); Aspartate Amino Transferase 31 U/L (15-37); Bilirubin,Total 0.3 mg/dL (0.00-1.00); Blood Urea Nitrogen 10 mg/dL (7-18); Calcium 9.7 mg/dL (8.5-10.1); Carbon Dioxide 29 mmol/L (21-32); Chloride 99 mmol/L (98-108); Cholesterol 299 mg/dL (0-200); Estimated Glomerular Filt Rate > 60; Glucose 99 mg/dL (70-99); HDL Direct 43 mg/dL (40-60); LDL Cholesterol Calculated 190 mg/dL (<130); Osmolality Calculated 281 mOsm/kg (285-295); Potassium 4.7 mmol/L (3.5-5.1); Sodium 136 mmol/L (136-145); Thyroid Stimulating Hormone 1.54 uIU/mL (0.36-3.74); Total Protein 7.1 g/dL (6.4-8.2); Triglycerides 331 mg/dL (0-150)
[2024-03-25 04:08] LABS: Vitamin D 25 Hydroxy 32 ng/mL (30-100)
== END 2024-03-23 08:30 | disposition home or self-care (01) ==
PROVIDERS: PCP Family Medicine; Visit Provider Family Medicine
DX: I10 Essential (primary) hypertension (principal); E55.9 Vitamin D deficiency, unspecified
CPT/HCPCS: 36415; 80053; 80061; 82043; 82306; 84443; 85025

== ENCOUNTER 2024-03-31 12:06 | Outpatient (CLI) | payer OTHER, SELFPAY ==
--- OUTSIDE RECORDS SUMMARY | 2024-03-31 12:09 | XMS_ITS | Data Portability ---
Author Organization [facility], [address] [facility] ([place]) Address [address] [address] Care Team Providers Care Management Internship Name Role Phone LULÚ DAY Primary Care Provider Assessment Encounter Date Assessment Date Assessment LastModified by Organization Details LastModified Time 01/25/2024 01/25/2024 ASSESSMENT AND PLAN: Katelyn Navarro is a 59-year-old female with past medical history significant for chronic migraine without aura. At this point, she is not a candidate to go upwards on propranolol. We will sit tight and maintain propranolol 60 mg extended release daily. She can maintain sumatriptan to use as needed. Since PMNR is making a change in possible therapy with Botox for dystonia, we will monitor and determine whether or not this is beneficial for her if Botox is approved. Ultimately, if she is denied Botox, we could consider proceeding with either Emgality trial or Botox for migraine without aura. She understands to update me. We will see her back in 3 months. Since she has worsening of recent headaches in terms of severity, we will proceed with CT head without contrast. I personally spent a total of 15 minutes on the patient on this date of service including both uvhw-ru-gpmm and mdb-upcw-bw-fa ce time excluding any separately reportable services. elizabeth olivares Not available 01/25/2024 14:24:14 Plan of Treatment Reminders Order Date Submit Date Provider Last Modified By Organization Details Last Modified Time Details Appointments Procedure 15.PRO 2023 08:30A M Dr. Hailee Lea Not available Not available Not available Procedure 20.PRO 2023 09:20A M Dr. Yury Delvalle Not available Not available Not available Procedure 15.PRO 2024 09:30A M Dr. Hailee Lea Not available Not available Not available Establish ed Patient 15.EST 2024 07:30A M Dr. Hailee Lea Not available Not available Not available Lab None recorded. Referral None recorded. Procedures None recorded. Surgeries None recorded. Imaging CT, head, w/o contrast 2023 024 [facility] (Radiology), [address] [facility] , [place], [address], 01/29/2024 14:49:42 Medication Orders None recorded. Patient TargetsNo targets recorded. Patient InstructionsNo instructions recorded. Reason for Referral None Reported. Results Created Date Observation Date Name Description Value Unit Range Abnormal Flag Note LastModifiedBy Organization Detail LastModifiedTime 10/30/19 24 09/18/2022 imagi ng/di agnos tic resul t No observ ation record ed. [email or web address] Not Available 22:00:29 12/03/19 24 08/23/2022 imagi ng/di agnos tic resul t No observ ation record ed. Not Available 12/03/2023 20:25:25 Result Notes None recorded. Problems Name Problem SNOMED Code Status Onset Date Resolution Date Notes Provider Name and Address Organization Details Recorded Time Dystonia 22344620 Active 2023 Yury Delvalle MD [address] [place] [address], [phone], [facility] 4 14:02:32 Episodic migraine 9152922757135 06 Active 2023 Hailee Lea MD [address] [place] [address], [phone], [facility] 4 13:37:09 Migraine without aura, not refractory 551207825 Active 2023 Hailee Lea MD [address] [place] [address], [phone], [facility] 4 14:08:01 Myofascial pain syndrome 187634723 Active 2023 Yury Delvalle MD [address] [place] [address], [phone], [facility] 4 12:32:44 Problem Notes None recorded. Procedures Surgical History Date Name Laterality Status Provider Name and Address Organization Details Recorded Time 4 SC Procedure completed Yury Delvalle MD [address] [place] [address], [phone], [facility] 01/15/2024 16:03:58 4 SC Procedure completed Yury Delvalle MD [address] [place] [address], [phone], [facility] 10/09/2023 12:39:17 Imaging Results Imaging Date Name Status [facility]Modified by [facility] Details LastModified Time 09/18/2022 imaging/diag nostic result completed [email or web address] Information not available 10/30/2023 22:00:29 08/23/2022 imaging/diag nostic result completed Information not available 12/03/2023 20:25:25 Procedure Notes None recorded. Medical Equipment None Reported. Allergies Allergen ID Allergen Name Allergen Category Reaction Reaction Severity Criticality Documentation Date Start Date Code Code System Note Provider Name and Address Organization Details Recorded Time [id number] 5e23d metoprolo l tartrate medicatio n edema Not available Not available 05/20/20232021 1 RxNorm React ion: Edema ; Comme nt: Annot ation s: VIDHI Wilson (GERI) LELAND TY 2021 11:33 AM Edema of legs; ; Not Available Not Available Not Available Medications Name Sig Start Date Stop Date Status Note LastModified by Organization Details LastModified Time cyclobenzaprine 10 mg tablet active Not Available Not Available Not Available neomycin-polymyx in-hydrocort 3.5 mg/mL-10,000 unit/mL-1 % ear solution 10/08 completed Not Available Not Available Not Available cetirizine 10 mg tablet 10/08 completed Not Available Not Available Not Available lisinopril 20 mg-hydrochloroth iazide 12.5 mg tablet 10/08 completed Not Available Not Available Not Available azithromycin 250 mg tablet 10/08 completed Not Available Not Available Not Available fluconazole 150 mg tablet 10/08 completed Not Available Not Available Not Available sumatriptan 100 mg tablet active Not Available Not Available No t Available hydrocodone 5 mg-acetaminophen 325 mg tablet active Not Available Not Availabl e Not Available meloxicam 15 mg tablet active Not Available Not Available Not Available propranolol ER 60 mg capsule,24 hr,extended release active Not Available Not Available Not Available sulfamethoxazole 800 mg-trimethoprim 160 mg tablet 10/08 completed Not Available Not Available Not Available lorazepam 0.5 mg tablet active Not Available Not Available Not Available amlodipine 10 mg tablet active Not Available Not Available Not Available cephalexin 500 mg capsule 10/08 completed Not Available Not Available Not Available gabapentin 300 mg capsule active Not Available Not Available N ot Available lisinopril 40 mg tablet active Not Available Not Available Not Available amoxicillin 875 mg-potassium clavulanate 125 mg tablet 01/24 completed Not Available Not Available Not Available ciprofloxacin 0.3 %-dexamethasone 0.1 % ear drops,suspension 10/08 completed Not Available Not Available Not Available Vitals Date Recorded Body weight Heart rate Oxygen saturation Oxygen saturation in Arterial blood by Pulse oximetry Systolic blood pressure Diastolic blood pressure Provider Name and Address Organization Details Last Updated DateTime 4 83793.5 8 g 52 /min 100 % 100 % 111 mm[Hg] 72 mm[Hg] Jenifer Langford [facility] 4 13:39:27 Social History None recorded. Functional Status None recorded. Mental Status None recorded. Family History Nothing Reported. Medical History No medical history recorded. Gynecological HistoryNo gynecological history recorded. Obstetrics History GPAL:G 0 P 0 0 0 0 Past Encounters Encounter ID Performer Location Encounter Start Date Encounter Closed Date Diagnosis/Indication Diagnosis SNOMED-CT Code Diagnosis ICD10 Code [id number] Yury Delvalle MD [address] [facility] ([place]) [address] [place] [address] 10/09/2023 11:51:07 10/09/2023 13:51:06 Myofascial pain syndrome 173651245 M79.18 [id number] Yury Delvalle MD [address] [facility] ([place]) [address] [place] [address] 01/15/2024 11:29:38 01/15/2024 14:36:10 Myofascial pain syndrome 300952994 M79.18 Dystonia 27721645 G24.9 [id number] Saskia Angel [facility] ([place]) [address] [place] [address] 01/25/2024 13:29:51 01/25/2024 14:27:40 Migraine without aura, not refractory 092367908 G43.709 Long-term current use of drug therapy 721530341 Z79.899 Health Concerns Section Related Observation LastModified by Organization Detai ls LastModified Time None Recorded Concern Status LastModified by Organization Details LastModified Time None Recorded Advance Directives Directive None Recorded Payers Encounter Date Sequence Insurance Name Policy Number Policy Jasso Covered Member ID Jasso Member ID Guarantor Name 10/09/2023 1 [facility] ON OR AFTER 10/18/20 (MEDICAID REPLACEMENT - HMO) Katelyn Navarro [id number] Katelyn Navarro 01/15/2024 1 [facility] ON OR AFTER 10/18/20 (MEDICAID REPLACEMENT - HMO) Katelyn Navarro [id number] Katelyn Navarro 01/25/2024 1 [facility] ON OR AFTER 10/18/20 (MEDICAID REPLACEMENT - HMO) Katelyn Navarro [id number] Katelyn Navarro Notes Date Note Type Note Provider Name and Address Organization Details Recorded Time 01/25/2024 text/html Katelyn Ramon i s a 59-year-old female who returns for follow-up for what is suspected possible migraine without aura. In the interim since I last saw her, she had a respiratory infection in November 2023. Since that time, she has been having persistent headaches. She actually historically did extremely well with propranolol 60 mg extended release daily in significant and almost complete amelioration of headaches. Since the time of her infection, she has had persistent headaches to a less severe extent. She is still working with Dr. Delvalle and receiving myofascial trigger point injections. Unfortunately, this has not been successful. They are attempting to proceed with approval for Botox for cervical dystonia per review of records. Approval has not yet been obtained, but this was only started about 10 days ago. She at this time has a low lying pulse of 52 with a lower blood pressure in the one teens. She does not report any adverse effects at this point from propranolol but certainly she is not an ideal candidate to go up on medication. She has not attempted alternative medications for migraine prevention beyond topiramate. Historically, when she was younger, she was on topiramate and had ankle swelling and dizziness and the medication was discontinued. Hailee Lea MD [address] [facility], [place], [address], [facility] 01/26/2024 12:35:45 OBGyn Episode No OBEpisode recorded.
[2024-03-31 13:07] LABS: Strep Group A RT-PCR NOT DETECTED (Negative)
[2024-03-31 13:08] LABS: SARS-CoV-2 RNA PCR Negative (Negative)
[2024-03-31 13:12] LABS: Influenza A QL RT-PCR Negative (Negative); Influenza B QL RT-PCR Negative (Negative)
== END 2024-03-31 12:07 | disposition home or self-care (01) ==
PROVIDERS: PCP Family Medicine; Visit Provider Family Medicine
DX: J06.9 Acute upper respiratory infection, unspecified (principal)
CPT/HCPCS: 87636; 87651

== ENCOUNTER 2024-04-05 11:08 | Outpatient (CLI) | payer OTHER, SELFPAY ==
--- NOTE | ~2024-04-05 | XR_ITS ---
Clinical Indication: Pneumonia PA and lateral views of the chest: Comparison: 12/29/2020 Findings: The lungs are clear, without evidence of focal consolidation or pleural effusion. Cardiome diastinal silhouette is within normal limits. Bones and soft tissues are unremarkable. Impression: Normal chest. Reviewed, dictated and finalized at [facility]. NT SERVICE MANAGER Impression: Normal chest.
== END 2024-04-05 11:09 | disposition home or self-care (01) ==
PROVIDERS: PCP Family Medicine; Visit Provider Family Medicine
DX: J18.9 Pneumonia, unspecified organism (principal)
CPT/HCPCS: 71046

== ENCOUNTER 2024-05-16 12:12 | Outpatient (CLI) | payer OTHER, SELFPAY ==
--- NOTE | ~2024-05-16 | MM_ITS ---
EXAMINATION: MM screening abelardo BI w blayne HISTORY: Screening TECHNIQUE: Craniocaudal and mediolateral oblique 3-D tomosynthesis images were obtained and synthetic 2-D images were generated. CAD analysis was submitted and interpreted. COMPARISON: Comparison to multiple prior studies sequentially, with oldest reviewed study dated 10/14. BREAST PARENCHYMAL COMPOSITION: Not Dense: The breasts are almost entirely fatty. FINDINGS: There is no evidence of suspicious mass, calcification, or architectural distortion to sugg est malignancy in either breast. There has been no suspicious interval change. IMPRESSION: 1. No mammographic evidence of malignancy. 2. Recommend routine screening mammography in one year. BI-RADS Category 1: Negative Reviewed, dictated and finalized at location A. TIVE MANAGER
--- OUTSIDE RECORDS SUMMARY | 2024-05-16 12:52 | XMS_ITS | Data Portability ---
Author Organization [facility], [address] [facility] ([place] Address [address] [place] [address] Care Team Providers Care Heating And Air Conditioning Mechanic Name Role Phone LULÚ DAY Primary Care [...] on this date of service including both smja-qd-jiiv and lyc-bolw-xd-face time excluding any separately reportable services. elizabeth olivares Not available 01/25/2024 14:24:14 04/08/2024 04/08/2024 Katelyn Navarro is a 59-year-old female with history of cervical radiculopathy, myofascial pain syndrome, chronic migraines, and cervical dystonia. She is hopeful that the Botox injections for her migraines that were completed today will be helpful. She does find the trigger point injections with steroid for her myofascial pain syndrome to be helpful. At this point, she is ready to target her cervical dystonia with Botox injections. We had a detailed discussion today regarding our management options and the timing of these procedures. She is experiencing involuntary contractions of the neck and shoulder musculature causing abnormal posturing and pain, which significantly impairs her function and quality of life. We will plan to proceed as follows: 1. Submit authorization for Botox injections for cervical dystonia. Will plan to complete these injections on the same day as her next round of Botox injections for her migraines with Dr. Lea. 2. Plan for repeat trigger point injections in 3 weeks. Our new plan will be to alternate between the trigger point injections and her Botox injections to provide improvement in her pain and quality of life that are significantly impacted by these conditions. Return to clinic: Trigger point injections in 3 weeks. I personally spent a total of 30 minutes on the patient on this date of service including both sipw-pn-vwui and tee-ntin-pj-face time excluding any separately reportable services. [email or web address] Not available 04/08/2024 11:30:12 Plan of Treatment Reminders Order Date Submit Date Provider Last Modified By Organization Details Last Modified Time Details Appointments Procedure 15.PRO 2024 08:15A M Dr. Hailee Lea Not available Not available Not available Procedure 20.PRO 2024 09:20A M Dr. Yury Delvalle Not available Not available Not available TeleHealt h 15.TELE 2024 07:45A M Dr. Hailee Lea Not available Not available Not available Lab None recorded. Referral None recorded. Procedures None recorded. Surgeries None recorded. Imaging CT, head, w/o contrast 2023 024 [facility] (Radiology), [address] [place] [address] , [place], [address], 01/29/2024 14:49:42 Medication Orders Botox 100 unit injection 2023 024 [facility], [facility], [place], [place], [id number], 04/08/2024 09:36:56 Patient TargetsNo targets recorded. Patient InstructionsNo instructions recorded. Reason for Referral None Reported. Problems Name Problem SNOMED Code Status Onset Date Resolution Date Notes Provider Name and Address Organization Details Recorded Time Dystonia 65085875 Active 2023 Yury Delvalle MD [address] [facility], [place], [address], [facility] 4 14:02:32 Episodic migraine 4513987516013 06 Active 2023 Hailee Lea MD [address] [place] [address], [phone], [facility] 4 13:37:09 Migraine without aura, not refractory 643049291 Active 2023 Hailee Lea MD [address] [place] [address], [address], [facility] 4 09:33:53 Isolated cervical dystonia 271867774 Active 2023 Yury Delvalle MD [address] [place] [address], [phone], [facility] 4 11:07:26 Myofascial pain syndrome 568330309 Active 2023 Yury Delvalle MD [address] [place] [address], [phone], [facility] 4 11:07:21 Problem Notes None recorded. Procedures Surgical History Date Name Laterality Status Provider Name and Address Organization Details Recorded Time 5 SC Procedure completed Yury Delvalle MD [address] [place] [address], [phone], [facility] 04/29/2024 11:15:46 4 SC Botox Procedure completed Hailee Lea MD [address] [place] [address], [phone], [facility] 04/08/2024 09:48:13 4 SC Procedure completed Yury Delvalle MD [address] [place] [address], [phone], [facility] 01/15/2024 16:03:58 SC Procedure completed Yury Delvalle MD [address] [place] [address], [phone], [facility] 10/09/2023 12:39:17 Imaging Results None recorded. Procedure Notes None recorded. Medical Equipment None Reported. Allergies Allergen ID Allergen Name Allergen Category Reaction Reaction Severity Criticality Documentation Date Start Date Code Code System Note Provider Name and Address Organization Details Recorded Time [id number] metoprolo l tartrate medicatio n edema Not available Not available 05/20/20232021 1 RxNorm React ion: Edema ; Comme nt: Annot atjaime s: VIDHI S (GERI) , LELAND TY 2021 11:33 AM Edema of legs; ; Not Available Not Available Not Available Medications Name Sig Start Date Stop Date Status Note LastModified by Organization Details LastModified Time cyclobenzap rine 10 mg tablet active Not Available Not Available Not Available neomycin-po lymyxin-hyd rocort 3.5 mg/mL-10,00 0 unit/mL-1 % ear solution 10/08 completed Not Available Not Available Not Available cetirizine 10 mg tablet 10/08 completed Not Available Not Available Not Available lisinopril 20 mg-hydrochl orothiazide 12.5 mg tablet 10/08 completed Not Available Not Available Not Available azithromyci n 250 mg tablet 10/08 completed Not Available Not Available Not Available fluconazole 150 mg tablet 10/08 completed Not Available Not Available Not Available sumatriptan 100 mg tablet active Not Available Not Available Not Available hydrocodone 5 mg-acetamin ophen 325 mg tablet active Not Available Not Available No t Available meloxicam 15 mg tablet active Not Available Not Available Not Available propranolol ER 60 mg capsule,24 hr,extended release TAKE ONE CAPSULE BY MOUTH NIGHTLY 2024 active Not Available Not Available Not Avai lable sulfamethox azole 800 mg-trimetho prim 160 mg tablet 10/08 completed Not Available Not Available Not Available lorazepam 0.5 mg tablet active Not Available Not Available Not Available amlodipine 10 mg tablet active Not Available Not Available Not Available cephalexin 500 mg capsule 10/08 completed Not Available Not Available Not Available gabapentin 300 mg capsule active Not Available Not Available Not Available lisinopril 40 mg tablet active Not Available Not Available Not Available amoxicillin 875 mg-potassiu m clavulanate 125 mg tablet 01/24 completed Not Available Not Available Not Available Botox 100 unit injection Administe r as directed 2023 active Not Available Not Available Not Avai lable ciprofloxac in 0.3 %-dexametha sone 0.1 % ear drops,suspe nsion 10/08 completed Not Available Not Available Not Available Vitals Date Recorded Body weight Provider Name an d Address Organization Details Last Updated DateTime 01/25/2024 22455.58 g [facility] 13:39:16 Date Recorded Heart rate Provider Name an d Address Organization Details Last Updated DateTime 01/25/2024 52 /min [facility] 01/25/2024 13:39:34 Date Recorded Oxygen saturation Oxygen saturation in Arterial blood by Pulse oximetry Provider Name and Address Organization Details Last Updated DateTime 01/25/2024 100 % 100 % [facility]/25/2024 13:39:44 Date Recorded Systolic blood pressure Diastolic blood pressure Provider Name and Address Organization Details Last Updated DateTime 01/25/2024 111 mm[Hg] 72 mm[Hg] [facility]/25/2024 13:39:27 Social History None recorded. Functional Status None recorded. Mental Status None recorded. Family History Nothing Reported. Medical History No medical history recorded. Gynecological HistoryNo gynecological history recorded. Obstetrics History GPAL:G 0 P 0 0 0 0 Past Encounters Encounter ID Performer Location Encounter Start Date Encounter Closed Date Diagnosis/Indication Diagnosis SNOMED-CT Code Diagnosis ICD10 Code Diagnosis Note [id number] Yury Delvalle MD [address] [facility] [place]) [address] [place] [address] 10/09/2023 11:51:07 10/09/2023 13:51:06 Myofascial pain syndrome 601844874 M79.18 [id number] Yury Delvalle MD [address] [facility] [place] [address] [place] [address] 01/15/2024 11:29:38 01/15/2024 14:36:10 Myofascial pain syndrome 268947687 M79.18 Dystonia 68078328 G24.9 [id number] Saskia Angel [facility] [place]) [address] [facility] [address] 01/25/2024 13:29:51 01/25/2024 14:27:40 Migraine without aura, not refractory 590056763 G43.709 Additional diagnosis detail: Chronic migraine without aura without status migrainosu s, not intractabl e Long-term current use of drug therapy 853989942 Z79.899 Additional diagnosis detail: Other fortune cookie maker (current) drug therapy [id number] Hailee Lea MD [address] [place] [place]) [address] [place] [address] 04/08/2024 09:22:03 04/08/2024 09:49:20 Migraine without aura, not refractory 216796718 G43.709 Additional diagnosis detail: Chronic migraine without aura without status migrainosu s, not intractabl e [id number] Yury Delvalle MD [address] [facility] ([place]) [address] [place] [address],[address] [place] [address] 04/08/2024 10:23:03 04/08/2024 10:59:00 Myofascial pain syndrome 711803777 M79.18 Isolated c ervical dystonia 935191002 G24.3 [id number] Yury Delvalle MD [address] [facility] ([place]) [address] [place] [address],[address] [place] [address] 04/29/2024 10:34:43 04/29/2024 13:08:57 Myofascial pain syndrome 761384708 M79.18 Health Concerns Section Related Observation LastModified by Organization Detai ls LastModified Time None Recorded Concern Status LastModified by Organization Details LastModified Time None Recorded Advance Directives Directive None Recorded Payers Encounter Date Sequence Insurance Name Policy Number Policy Jasso Covered Member ID Jasso Member ID Guarantor Name 01/15/2024 1 [facility] ON OR AFTER 10/18/20 (MEDICAID REPLACEMENT - HMO) Katelyn Wilson Ramon [id number] Katelyn Wilson Ramon 01/25/2024 1 [facility] ON OR AFTER 10/18/20 (MEDICAID REPLACEMENT - HMO) Katelyn Wilson Ramon [id number] Katelyn Wilson Ramon 04/08/2024 1 [facility] ON OR AFTER 10/18/20 (MEDICAID REPLACEMENT - HMO) Katelyn Katie Navarro [id number] Katelyn Wilson Ramon 04/08/2024 1 [facility] ON OR AFTER 10/18/20 (MEDICAID REPLACEMENT - HMO) Katelyn Navarro [id number] Katelyn Katie Navarro 04/29/2024 1 [facility] ON OR AFTER 10/18/20 (MEDICAID REPLACEMENT - HMO) Katelyn Katie Navarro [id number] Katelyn Katie Ramon Notes Date Note Type Note Provider Name and Address Organization Details Recorded Time 01/25/2024 text/html Katelyn Navarro i s a 59-year-old female who returns [...] was discontinued. Hailee Lea MD [address] [place] [address], [phone], [facility] 01/26/2024 12:35:45 04/08/2024 text/html Katelyn Navarro i s a 59-year-old female presenting to PM&R clinic for evaluation of cervical dystonia and myofascial pain syndrome. She was seen by Neurology earlier today and underwent Botox injections for her migraines, which she tolerated well, without side effect. Three months ago, we completed trigger point injections with steroid for her myofascial pain syndrome. She does find these trigger point injections to be helpful. She is tolerating them without side effect. However, her cervical dystonia requires further management. She is having significant pain due to her cervical dystonia and myofascial pain. She has significant discomfort in the left side of the posterior neck and the upper back musculature on the left. Her symptoms can radiate into the left arm down to the hand. The neck pain is constant while the radiating symptoms are intermittent and tend to flare up when she is more active and in more severe pain. She would like to proceed with Botox injections for her cervical dystonia.dpk Yury Delvalle MD [address] [place] [address], [phone], [facility] 04/11/2024 11:24:14 OBGyn Episode No OBEpisode recorded.
--- OUTSIDE RECORDS SUMMARY | 2024-05-16 12:52 | XMS_ITS | Clinical Summary ---
Author Organization [facility] Address [facility] [place] [address] [place] [address] Care Team Providers Care All Around Gear Machine Operator Name Role Phone Vasquez Packer MD Primary Care Provider [phone] Social History Tobacco Use Types Packs/Day Years Used Date Smoking Tobacco: Never Assessed Comments Unknown Sex and Gender Information Value Date Recorded Sex Assigned at Not on file Legal Sex Female 8:24 PM CDT Gender Identity Not on file Sexual Orientation Not on file Last Filed Vital Signs Vital Sign Reading Time Taken Comments Blood Pressure 126/70 01/25/2013 4:04 PM CDT Pulse 76 01/25/2013 4:04 PM CDT Temperature - - Respiratory Rate - - Oxygen Saturation - - Inhaled Oxygen Concentration - - Weight 68 kg (150 lb) 01/25/2013 4:04 PM CDT Height 165.1 cm (5' 5 ) 01/25/2013 4:04 PM CDT Body Mass Index 24.96 01/25/2013 4:04 PM CDT Plan of Treatment Health Maintenance Due Date Last Done Comments Cervical Cancer Screening Pap Smear (Age 30 to 64) Every 3 Years 1966 Colorectal Cancer Screening Colonoscopy (10 Years) 1966 Annual Physical 1969 Hepatitis C 01/06/1984 Hepatitis B Vaccines (1 of 3 - 19+ 3-dose series) 1985 Cervical Cancer Screening Pap with HPV Testing (Age 30 to 64) Every 5 Years 01/06/1996 Cervical Cancer Screening with HPV 01/06/1996 Mammogram Screening 2006 Zoster Vaccines (1 of 2) 01/06/2016 COVID-19 Vaccine (2023- season) 2023 Influenza Adult (#1) 2024 01/12/2017, 02/13/2015, 02/25/2013, Additional history exists DTaP, Tdap and Td Vaccines (3 - Td or Tdap) 08/10/2031 08/09/2021, 01/26/2019 Meningococcal B Vaccine Aged Out No l onger eligible based on patient's age to complete this topic Meningococcal Vaccine Aged Out No melinda monique eligible based on patient's age to complete this topic Pneumococcal Vaccine: Pediatrics (0 to 5 Years) and At-Risk Patients (6 to 64 Years) Aged Out No longer eligible based on patient's age to complete this topic RSV Immunizations Under 20 Months Aged Out No longer eligible based on patient's age to complete this topic Insurance [place] Care Teams All Around Gear Machine Operator Relationship Specialty Start Date End Date Vasquez Packer MD [address] [place] [address] PCP - General FAMILY PRACTICE 02/12/24
--- OUTSIDE RECORDS SUMMARY | 2024-05-16 12:52 | XMS_ITS | Clinical Summary ---
Author Organization [facility] Address [address] [place] [address] Care Team Providers Care Sewage Disposal Worker Name Role Phone Vasquez Packer MD Primary Care Provide r Allergies Active Allergy Reactions Criticality Noted Date Comments Metoprolol Tartrate Swelling Medium 01/12/2018 Topiramate Other (See comments) Low 03/26/2015 [place] anxious and couldn't sleep Medications gabapentin (NEURONTIN) 400 mg capsule Take 400 mg by mouth daily Pt takes at bedtime Active LORazepam (ATIVAN) 0.5 mg tablet Take 0.5 mg by mouth every 6 (six) hours as needed for anxiety Active cyclobenzaprine (FLEXERIL) 10 mg tablet Take 10 mg by mouth 3 (three) times a day as needed for muscle spasms Active HYDROcodone-acet aminophen (NORCO) 5-325 mg per tabletIndication s:Pain Take 1 tablet by mouth every 6 (six) hours as needed Active lisinopriL (PRINIVIL,ZESTRI L) 5 mg tablet Take 5 mg by mouth daily Pt not sure of the dosage Active amLODIPine (NORVASC) 5 mg tablet Take 5 mg by mouth daily Pt does not know the exact dose Active meloxicam (MOBIC) 15 mg tablet Take 15 mg by mouth as needed 07/02/2016 Active amLODIPine (NORVASC) 10 mg tablet Take 10 mg by mouth daily Active lisinopril-hydro CHLOROthiazide (ZESTORETIC) 20-12.5 mg per tablet 06/25/2021 Active HYDROcodone-acet aminophen (NORCO) 5-325 mg per tablet Take 1 tablet by mouth every 4 (four) hours as needed Active gabapentin (NEURONTIN) 300 mg capsule 06/25/2021 Active cyclobenzaprine (FLEXERIL) 10 mg tablet Take 10 mg by mouth 3 (three) times a day as needed Active LORazepam (ATIVAN) 0.5 mg tablet Take 0.5 mg by mouth nightly Active SUMAtriptan (IMITREX) 100 mg tablet Take 100 mg by mouth daily as needed Active vitamin B complex capsule Take 1 capsule by mouth daily Active ergocalciferol, vitamin D2, 10 mcg (400 unit) tablet Take 400 Units by mouth daily Active zinc 50 mg tablet Take by mouth Active biotin 10 mg tablet Active topiramate (TOPAMAX) 50 mg tabletIndication s:Chronic migraine without aura without status migrainosus, not intractable Take half tablet (25 mg) po twice a day for one week, then one tablet po twice a day 60 tablet 3 07/23/2021 Active propranolol LA (INDERAL LA) 60 mg 24 hr capsule 01/11/2023 Ac tive Active Problems Problem Noted Date Diagnosed Date Chronic migraine without aur a without status migrainosus, not intractable 07/23/2021 Essential hypertension 04/20/2020 Assessment & Plan (04/20/2020 5:27 AM SUPERVISOR ELECTRON TUBE PROCESSING): Patient was hypotensive on presentation but currently normotensive. She is on lisinopril and hydrochlorothiazide 20/12.5 which will be held due to renal failure. Resume Norvasc with hold parameters. Continue to monitor. Neck pain 04/20/2020 Assessment & Plan (04/20/2020 5:28 AM SUPERVISOR ELECTRON TUBE PROCESSING): Continue gabapentin and p.r.n. [place] Anxiety and depression 04/20/2020 Assessment & Plan (04/20/2020 5:28 AM SUPERVISOR ELECTRON TUBE PROCESSING): Patient appears depressed and tearful. She takes p.r.n. Ativan at home 0.5 mg q.8 p.r.n. but she is on the alcohol withdrawal scale. Black stools 04/20/2020 Assessment & Plan (04/20/2020 5:37 AM SUPERVISOR ELECTRON TUBE PROCESSING): On off for the last 3 days. Patient has been consuming a lot of alcohol. Will check a guaiac. Will hold anticoagulation for now until we can rule out GI bleed. Alcohol withdrawal syndrome with complication Alcohol abuse 04/19/2020 Assessment & Plan (04/20/2020 5:29 AM SUPERVISOR ELECTRON TUBE PROCESSING): Patient went on an alcohol binge for last 3 days due to stress and feeling overwhelmed presenting alcohol level was 338. She is currently on multivitamin, thiamine and folic acid. Alcohol withdrawal scale. Warm handoff has been consulted. Patient has been in rehab for alcohol in the past maybe over 10 years ago. Exact amount of alcohol patient consumes is unknown as she is evasive. Hypoglycemia Resolved Problems Problem Noted Date Diagnosed Date Resolved Date Lactic acidosis 04/20/2020 04/20/2020 Assessment & Plan (04/20/2020 5:29 AM SUPERVISOR ELECTRON TUBE PROCESSING): Likely secondary to the alcohol abuse and dehydration. Improved with some fluids but still elevated. Will repeat and continue to monitor. Acute renal failure 04/20/2020 04/20/19 21 Assessment & Plan (04/20/2020 5:30 AM SUPERVISOR ELECTRON TUBE PROCESSING): No baseline creatinine available. Suspected is acute kidney injury due to prerenal causes as patient was dehydrated with low normal blood pressures on presentation. Hold all nephrotoxins including lisinopril and hydrochlorothiazide until baseline can be determined. Hypokalemia 04/20/2020 04/20/2020 Assessment & Plan (04/20/2020 5:30 AM SUPERVISOR ELECTRON TUBE PROCESSING): Continue to monitor replace as needed. Patient received replacement via IV fluids. Dehydration 04/20/2020 04/20/2020 Surgical History Surgery Date Site/Laterality Comments EPIDURAL INJECTION LUMBOSACRAL 12/20/2013 N/A EPIDURAL INJECTION LUMBOSACRAL 07/28/2013 N/A EPIDURAL INJECTION LUMBOSACRAL 04/26/2013 N/A EPIDURAL INJECTION LUMBOSACRAL 02/09/2013 N/A EPIDURAL INJECTION LUMBOSACRAL 10/12/2012 N/A Medical History Medical History Date Comments Numbness Hypertension Migraine Family History Medical History Relation Name Comments Hypertension Father shingles Mother Relation Name Status Comments Father Mother Social History Tobacco Use Types Packs/Day Years Used Date Smoking Tobacco: Never Smokeless Tobacco: Never PHQ-2 Answer Date Recorded PHQ-2 Total Score (If total score is 3 or more points, staff should administer the PHQ-9) 0 04/20/2020 Comments No Sex and Gender Information Value Date Recorded Sex Assigned at Not on file Legal Sex Female 10:41 PM SUPERVISOR ELECTRON TUBE PROCESSING Gender Identity Not on file Sexual Orientation Not on file Obstetrics History Last Filed Vital Signs Vital Sign Reading Time Taken Comments Blood Pressure 118/77 07/23/2021 11:23 AM CDT Pulse 79 07/23/2021 11:23 AM CDT Temperature 37 ??C (98.6 ??F) 04/23/2020 3:00 PM SUPERVISOR ELECTRON TUBE PROCESSING Respiratory Rate 16 04/23/2020 3:00 PM SUPERVISOR ELECTRON TUBE PROCESSING Oxygen Saturation 98% 04/23/2020 3:00 PM SUPERVISOR ELECTRON TUBE PROCESSING Inhaled Oxygen Concentration - - Weight 67.6 kg (149 lb) 07/23/2021 11:23 AM CDT Height 165.1 cm (5' 5 ) 07/23/2021 11:23 AM CDT Body Mass Index 24.79 07/23/2021 11:23 AM CDT Plan of Treatment Health Maintenance Due Date Last Done Comments Breast Cancer Screening-Mammogram 1966 Colon Cancer Screening-Colonoscopy 1966 Hepatitis C Screening 1966 Hepatitis B Screening 01/06/1984 Regular Well Visit/Exam 18-64 01/06/1984 Zoster Vaccine (1 of 2) 01/06/2016 Depression Screening 04/19/2021 04/19/2020 Influenza Vaccine (#1) 2023 7, 02/13/2015, 02/25/2013, Additional history exists DTaP/Tdap/Td Vaccine (2 - Td or Tdap) 01/26/2029 01/26/2019 Pneumococcal vaccine <65 Aged Out No longer eligible based on patient's age to complete this topic Insurance [facility] Advance Directives For more information, please contact: [phone] * LIMITED - No CPR (Latest Code Status on File) Date Activated Date Inactivated Comments 04/20/2020 5:26 AM 04/23/2020 9:30 PM Question Answer Comments Provide aggressive medical m anagement before a full cardiopulmonary arrest occurs. Use antibiotics, IV Fluids, and medical treatment unless specifically selected below: No intubation * Full Code Date Activated Date Inactivated Comments 04/19/2020 7:41 PM 04/20/2020 5:26 AM Care Teams Sewage Disposal Worker Relationship Specialty Start Date End Date Vasquez Packer MD [address] [place] [address] PCP - General 04/19/20
--- OUTSIDE RECORDS SUMMARY | 2024-05-16 12:52 | XMS_ITS | Referral Summary ---
Author Organization [facility] Address [address] [place] [address] Care Team Providers Care Executive Community Planning Name Role Phone Vasquez Packer MD Primary Care Provide r Allergies Active Allergy Reactions Criticality Noted Date Comments Metoprolol Tartrate Swelling Medium 01/12/2018 Topiramate Other (See comments) Low 03/26/2015 [place] anxious and couldn't sleep Medications gabapentin (NEURONTIN) [...] 04/20/2020 Assessment & Plan (04/20/2020 5:27 AM ABA THERAPIST): Patient was hypotensive on presentation but currently normotensive. She is on lisinopril and hydrochlorothiazide 20/12.5 which will be held due to renal failure. Resume Norvasc with hold parameters. Continue to monitor. Neck pain 04/20/2020 Assessment & Plan (04/20/2020 5:28 AM ABA THERAPIST): Continue gabapentin and p.r.n. [place] Anxiety and depression 04/20/2020 Assessment & Plan (04/20/2020 5:28 AM ABA THERAPIST): Patient appears depressed and tearful. She takes p.r.n. Ativan at home 0.5 mg q.8 p.r.n. but she is on the alcohol withdrawal scale. Black stools 04/20/2020 Assessment & Plan (04/20/2020 5:37 AM ABA THERAPIST): On off for the last 3 days. Patient has been consuming a lot of alcohol. Will check a guaiac. Will hold anticoagulation for now until we can rule out GI bleed. Alcohol withdrawal syndrome with complication Alcohol abuse 04/19/2020 Assessment & Plan (04/20/2020 5:29 AM ABA THERAPIST): Patient went on an alcohol binge for [...] 04/20/2020 Assessment & Plan (04/20/2020 5:29 AM ABA THERAPIST): Likely secondary to the alcohol abuse and dehydration. Improved with some fluids but still elevated. Will repeat and continue to monitor. Acute renal failure 04/20/2020 04/20/19 21 Assessment & Plan (04/20/2020 5:30 AM ABA THERAPIST): No baseline creatinine available. Suspected is acute kidney injury due to prerenal causes as patient was dehydrated with low normal blood pressures on presentation. Hold all nephrotoxins including lisinopril and hydrochlorothiazide until baseline can be determined. Hypokalemia 04/20/2020 04/20/2020 Assessment & Plan (04/20/2020 5:30 AM ABA THERAPIST): Continue to monitor replace as needed. Patient received replacement via IV fluids. Dehydration 04/20/2020 04/20/2020 Social History Tobacco Use Types Packs/Day Years Used Date Smoking Tobacco: Never Smokeless Tobacco: Never PHQ-2 Answer Date Recorded PHQ-2 Total Score (If total score is 3 or more points, staff should administer the PHQ-9) 0 04/20/2020 Comments No Sex and Gender Information Value Date Recorded Sex Assigned at Not on file Legal Sex Female 10:41 PM ABA THERAPIST Gender Identity Not on file Sexual Orientation Not on file Last Filed Vital Signs Vital Sign Reading Time Taken Comments Blood Pressure 118/77 07/23/2021 11:23 AM CDT Pulse 79 07/23/2021 11:23 AM CDT Temperature 37 ??C (98.6 ??F) 04/23/2020 3:00 PM ABA THERAPIST Respiratory Rate 16 04/23/2020 3:00 PM ABA THERAPIST Oxygen Saturation 98% 04/23/2020 3:00 PM ABA THERAPIST Inhaled Oxygen Concentration - - Weight 67.6 kg (149 lb) 07/23/2021 11:23 AM CDT Height 165.1 cm (5' 5 ) 07/23/2021 11:23 AM CDT Body Mass Index 24.79 07/23/2021 11:23 AM CDT Plan of Treatment Not on file Insurance [facility] Advance Directives For more information, please contact: [phone] * LIMITED - No CPR (Latest Code [...] 7:41 PM 04/20/2020 5:26 AM Care Teams Executive Community Planning Relationship Specialty Start Date End Date Vasquez Packer MD [address] [place] [address] PCP - General 04/19/20
--- OUTSIDE RECORDS SUMMARY | 2024-05-16 12:52 | XMS_ITS | Clinical Summary ---
Author Organization [facility] Address [address] [facility] [place] [address] Phone Care Team Providers Care Office Spec Name Role Phone Osiris Younger PAC Unavailable [phone] Vasquez Packer MD Primary Care Provider [phone] Allergies Active Allergy Reactions Criticality Noted Date Comments Metoprolol Tartrate Swelling 01/12/2018 Topiramate Other (see Comments) 03/26/2015 [place] anxious and couldn't sleep Medications amLODIPine (NORVASC) 10 MG Tablet Take 10 mg by mouth daily. Active lisinopril-hydr ochlorothiazide (PRINZIDE, ZESTORETIC) 20-12.5 MG Tablet Take 1 Tab by mouth daily. Active ergocalciferol (VITAMIN D) 24468 UNIT Capsule Take 50,000 Units by mouth once a week. Active cyclobenzaprine (FLEXERIL) 10 MG Tablet Take 10 mg by mouth 3 times daily as needed for Muscle spasms. Active LORazepam (ATIVAN) 0.5 MG Tablet Take 0.5 mg by mouth nightly. Active SUMAtriptan (IMITREX) 100 MG Tablet Take 100 mg by mouth daily as needed for Migraine. Reported on 05/09/2016 Active naproxen sodium (ALEVE) 220 MG Tablet Take 220 mg by mouth as needed. Reported on 05/09/2016 Active diphenhydrAMINE (BENADRYL) 25 MG Tablet Take 25 mg by mouth as needed. Reported on 05/09/2016 Active melatonin 3 MG Tablet Take 3 mg by mouth as needed. Active Multiple Vitamin (MULTI-VITAMIN PO) Take by mouth. Activ e buPROPion SR (WELLBUTRIN SR) 150 MG TABLET SR 12 HR Take 1 Tab by mouth 2 times daily. Start 1 tab PO daily x 3 days, then increase to bid 60 Tab 1 7 Active Additional Information Patient not taking.Reported on 06/21/2018 gabapentin (NEURONTIN) 100 MG Capsule Take 3 caps q hs 90 Cap 5 7 Active Additional Information Patient taking differently: 100 mg, Take 3 caps q hs, Reported on 06/21/2018 Meloxicam 15 MG Tablet Take 1 Tab by mouth as needed for Pain. 90 Tab 1 7 Active Additional Information Patient not taking.Reported on 01/14/2018 HYDROcodone-maureen taminophen (NORCO) 5-325 MG Tablet Take 1 Tab by mouth every 4 hours as needed. Active Active Problems Problem Noted Date Diagnosed Date Arthritis of neck 06/18/2015 Tendinopathy of left rotator cuff 05/21/2015 History of tobacco use disorder 04/23/2015 Essential hypertension 04/23/2015 Cervical spondylosis with radiculopathy 02/28/20 15 Family History Medical History Relation Name Comments Heart Attack Father Hypertension Father Renal Failure Father Alzheimer's Disease Maternal Grandfather Hypertension Maternal Grandfather Parkinsonism Maternal Grandfather Cancer Paternal Grandmother Relation Name Status Comments Father Maternal Grandfather Mother Alive Paternal Grandmother Social History Tobacco Use Types Packs/Day Years Used Date Smoking Tobacco: Some Days Cigarettes Smokeless Tobacco: Never Tobacco Cessation:Ready to Q uit: Yes Alcohol Use Standard Drinks/Week Comments No 0 (1 standard drink = 0.6 oz pur e alcohol) occasional twice a year Sexually Active Control Partners Comments Yes Male Comments No Sex and Gender Information Value Date Recorded Sex Assigned at Not on file Legal Sex Female 8:38 PM CDT Gender Identity Not on file Sexual Orientation Not on file Last Filed Vital Signs Vital Sign Reading Time Taken Comments Blood Pressure 130/88 06/21/2018 3:55 PM RFP WRITER Pulse 103 06/21/2018 3:55 PM RFP WRITER Temperature 37.2 ??C (98.9 ??F) 06/21/2018 3:55 PM CS T Respiratory Rate 16 06/21/2018 3:55 PM RFP WRITER Oxygen Saturation 96% 06/21/2018 3:55 PM RFP WRITER Inhaled Oxygen Concentration - - Weight 69.4 kg (153 lb) 06/21/2018 3:55 PM RFP WRITER Height 162.6 cm (5' 4 ) 06/21/2018 3:55 PM RFP WRITER Body Mass Index 26.26 06/21/2018 3:55 PM RFP WRITER Plan of Treatment Health Maintenance Due Date Last Done Comments Hepatitis C Virus (HCV) Screening 1966 TdaP Immunization 1966 Hepatitis B Immunization (1 of 3 - 19+ 3-dose series) 1985 Colonoscopy 2011 Colorectal Cancer Screening 2011 Cologuard 01/06/2016 Immunochemical Fecal Occult Blood 01/06/2016 Mammogram 01/06/2016 Pneumococcal Immunization (5 0+ years) (1 of 1 - PCV) 01/06/2016 Zoster Immunization (1 of 2) 01/06/2016 Influenza Immunization (#1) 2023 01/12/2017 SARS-COV-2 Immunization (1 - 2023- season) 2023 Respiratory Syncytial Virus (RSV) Immunization (Adult) (1 - 1-dose 75+ series) 2041 Meningococcal Immunization (ACWY) Aged Out No longer eligible based on patient's age to complete this topic Pneumococcal Immunization Combined Aged Out No longer eligible based on patient's age to complete this topic Rotavirus Immunization Aged Out No lo nger eligible based on patient's age to complete this topic Insurance MEDICAID [facility] Care Teams Office Spec Relationship Specialty Start Date End Date Vasquez Packer MD [address] [place] [address] PCP - General Pediatrics 02/26/15 Osiris Younger, PAC [address] [place] [address] Physician Galley Hand Physician Galley Hand 02/26/15
== END 2024-05-16 12:13 | disposition home or self-care (01) ==
PROVIDERS: PCP Family Medicine; Visit Provider Family Medicine
DX: Z12.31 Encounter for screening mammogram for malignant neoplasm of breast (principal)
CPT/HCPCS: 77063; 77067

== ENCOUNTER 2024-07-25 15:44 | Outpatient (CLI) | payer OTHER, SELFPAY ==
--- NOTE | ~2024-07-25 | XR_ITS ---
Right foot Technique: AP, oblique, and lateral views were obtained. Clinical History: Pain, gout Findings: No acute fracture or dislocation is seen. Osseous alignment is anatomic. Joint spaces are p reserved without erosive or degenerative change. Soft tissues are unremarkable. Impression: Unremarkable right foot radiographs. Reviewed, dictated and finalized at [facility]. Impression: Unremarkable right foot radiographs.
[2024-07-25 16:11] LABS: Basophils Absolute Auto 0.01 K/mm3 (0.00-0.10); Basophils Percent Auto 0.1 % (0.0-1.0); Eosinophils Absolute Auto 0.02 K/mm3 (0.02-0.50); Eosinophils Percent Auto 0.2 % (1.0-6.0); Hematocrit 39.5 % (35.0-49.0); Hemoglobin 13.3 g/dL (12.0-15.0); Immature Granulocyte Absolute 0.08 K/mm3 (0.00-0.00); Immature Granulocyte Percent A 0.7 % (0.0-0.0); Lymphocytes Absolute Auto 2.44 K/mm3 (1.10-4.50); Lymphocytes Percent Auto 21.6 % (18.0-42.0); Mean Corpuscular HGB Conc 33.7 g/dL (32-36); Mean Corpuscular Hemoglobin 35.5 pg (27.0-31.0); Mean Corpuscular Volume 105.3 fL (78.0-102.0); Mean Platelet Volume 10.5 fl (9.2-11.8); Monocytes Absolute Auto 0.69 K/mm3 (0.10-0.90); Monocytes Percent Auto 6.1 % (2.0-11.0); Neutrophils Absolute Auto 8.08 K/mm3 (1.70-7.20); Neutrophils Percent Auto 71.3 % (50.0-70.0); Platelet Count Result 263 K/mm3 (150-420); Red Blood Count 3.75 M/mm3 (4.20-5.40); Red Cell Distribution Width 13.2 % (11.6-14.4); White Blood Count 11.3 K/mm3 (4.8-10.8)
[2024-07-25 17:19] LABS: Anion Gap 11 mmol/L (4-12); Blood Urea Nitrogen 12 mg/dL (7-18); Calcium 9.2 mg/dL (8.5-10.1); Carbon Dioxide 27 mmol/L (21-32); Chloride 100 mmol/L (98-108); Estimated Glomerular Filt Rate > 60; Glucose 104 mg/dL (70-99); Osmolality Calculated 285 mOsm/kg (285-295); Potassium 4.6 mmol/L (3.5-5.1); Sodium 138 mmol/L (136-145); Uric Acid 6.9 mg/dL (2.6-6.0)
--- OUTSIDE RECORDS SUMMARY | 2024-07-25 17:43 | XMS_ITS | Clinical Summary ---
Author Organization [facility] Address [address] [facility] [address] Phone Care Team Providers Care Mechanical Design Engineer Products Name Role Phone Osiris Younger PAC Unavailable [phone] Vasquze Packer MD Primary Care Provider [phone] Allergies Active Allergy Reactions Criticality Noted Date Comments Metoprolol Tartrate Swelling 01/12/2018 Topiramate Other (see Comments) 03/26/2015 [place] anxious and couldn't sleep Medications amLODIPine (NORVASC) 10 MG Tablet Take 10 mg by mouth daily. Active lisinopril-hydr ochlorothiazide (PRINZIDE, ZESTORETIC) 20-12.5 MG Tablet Take 1 Tab by mouth daily. Active ergocalciferol (VITAMIN D) 06450 UNIT Capsule Take 50,000 Units by mouth [...] Comments Blood Pressure 130/88 06/21/2018 3:55 PM PARTS ROOM CLERK Pulse 103 06/21/2018 3:55 PM PARTS ROOM CLERK Temperature 37.2 C (98.9 F) 06/21/2018 3:55 PM PARTS ROOM CLERK Respiratory Rate 16 06/21/2018 3:55 PM PARTS ROOM CLERK Oxygen Saturation 96% 06/21/2018 3:55 PM PARTS ROOM CLERK Inhaled Oxygen Concentration - - Weight 69.4 kg (153 lb) 06/21/2018 3:55 PM PARTS ROOM CLERK Height 162.6 cm (5' 4 ) 06/21/2018 3:55 PM PARTS ROOM CLERK Body Mass Index 26.26 06/21/2018 3:55 PM PARTS ROOM CLERK Plan of Treatment Health Maintenance Due Date Last Done Comments Hepatitis C Virus (HCV) Screening 1966 TdaP Immunization 1966 Hepatitis B Immunization (1 of 3 - 19+ 3-dose series) 1985 Colonoscopy 2011 Colorectal Cancer Screening 2011 Cologuard 01/06/2016 Immunochemical Fecal Occult Blood 01/06/2016 Pneumococcal Immunization (50+ years) (1 of 1 - PCV) 01/06/2016 Zoster Immunization (1 of 2) 01/06/2016 Influenza Immunization (#1) 12/20/202312/20, 02/13/2015, 02/25/2013, Additional history exists SARS-COV-2 Immunization ( - 2023- season) 2023 Respiratory Syncytial Virus (RSV) Immunization (Adult) (1 - 1-dose 75+ series) 2041 Meningococcal Immunization (ACWY) Aged Out No longer eligible based on patient's age to complete this topic Rotavirus Immunization Aged Out No lo nger eligible based on patient's age to complete this topic Insurance MEDICAID [facility] [employer] Care Teams Mechanical Design Engineer Products Relationship Specialty Start Date End Date Vasquez Packer MD [address] [place] [address] PCP - General Pediatrics 02/26/15 Osiris Younger PAC [address] [place] [address] Physician Belt Line Feeder Physician Belt Line Feeder 02/26/15
--- OUTSIDE RECORDS SUMMARY | 2024-07-25 17:43 | XMS_ITS | Clinical Summary ---
Author Organization [facility] Address [address] [place] [address] Care Team Providers Care Vehicle Insurance Agent Name Role Phone Vasquez Packer MD Primary Care Provider [phone] Social History Tobacco Use Types Packs/Day Years [...] Date Last Done Comments Cervical Cancer Screening Pa p Smear (Age 30 to 64) Every 3 Years 1966 Colorectal Cancer Screening Colonoscopy (10 Years) 1966 Annual Physical 1969 Hepatitis C 01/06/1984 Hepatitis B Vaccines (1 of 3 - 19+ 3-dose series) 1985 Cervical Cancer Screening Pa p with HPV Testing (Age 30 to 64) Every 5 Years 01/06/1996 Cervical Cancer Screening wi th HPV 01/06/1996 Mammogram Screening 2006 Zoster Vaccines (1 of 2) 01/06/2016 COVID-19 Vaccine (2023-2 5 season) 2023 DTaP, Tdap and Td Vaccines ( 3 - Td or Tdap) 08/10/2031 08/09/2021, 01/26/2019 Meningococcal B Vaccine Aged Out No l onger eligible based on patient's age to complete this topic Meningococcal Vaccine Aged Out No melinda monique eligible based on patient's age to complete this topic Pneumococcal Vaccine: Pediatrics (0 to 5 Years) and At-Risk Patients (6 to 64 Years) Aged Out No longer eligible b ased on patient's age to complete this topic RSV Immunizations Under 20 Months Aged Out No longer eligible b ased on patient's age to complete this topic Insurance [employer] Care Teams Vehicle Insurance Agent Relationship Specialty Start Date End Date Vasquez Packer MD [address] [place], [place] [id number] PCP - General FAMILY PRACTICE 02/12/24
--- OUTSIDE RECORDS SUMMARY | 2024-07-25 17:43 | XMS_ITS | Data Portability ---
Author Organization [facility], [address] [facility] ([place]) Address [address] [place] [address] Care Team Providers Care Telecasting Engineer Name Role Phone LULÚ DAY Primary Care [...] on this date of service including both wqtl-qs-hsad and lmr-hjsu-yq-face time excluding any separately reportable services. elizabeth [...] on this date of service including both firb-su-mths and tpt-cicc-fq-face time excluding any separately reportable services. [email or web address] Not available 04/08/2024 11:30:12 Plan of Treatment Reminders Order Date Submit Date Provider Last Modified By Organization Details Last Modified Time Details Appointments TeleHealt h 15.TELE 2024 07:45A M Dr. Hailee Lea Not available Not available Not available Procedure 15.PRO 2024 07:45A M Dr. Hailee Lea Not available Not available Not available Procedure 20.PRO 2024 09:20A M Dr. Yury Delvalle Not available Not available Not available Lab None recorded. Referral None recorded. Procedures None recorded. Surgeries None recorded. Imaging CT, head, w/o contrast 2023 024 [facility] (Radiology), [address] [place], [place] [address]ellyn Guevara, [place], [address], 01/29/2024 14:49:42 Medication Orders Botox 100 unit injection 2023 024 sung [facility], [facility], [place], [id number], 04/08/2024 09:36:56 Patient TargetsNo targets recorded. Patient InstructionsNo instructions recorded. Reason for Referral None Reported. Problems Name Problem SNOMED Code Status Onset Date Resolution Date Notes Provider Name and Address Organization Details Recorded Time Dystonia 64025195 Active 2023 Yury Delvalle MD [address] [facility], [place], [address], [facility] 4 14:02:32 Episodic migraine 1483837739161 06 Active 2023 Hailee Lea MD [address] [place] [address], [address], [facility] 4 13:37:09 Migraine without aura, not refractory 742434798 Active 2023 Hailee Lea MD [address] [place] [address], [address], [facility] 4 09:33:53 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 Procedures Surgical History Date Name Laterality Status Provider Name and Address Organization Details Recorded Time 5 SC Procedure completed Yury Delvalle MD [address] [place] [address], [phone], [facility] 07/22/2024 10:58:26 5 SC Procedure completed Yury Delvalle MD [address] [place] [address], [address], [facility] 04/29/2024 11:15:46 4 SC Botox Procedure completed Hailee Lea MD [address] [place] [address], [address], [facility] 04/08/2024 09:48:13 4 SC Procedure completed Yury Delvalle MD [address] [place] [address], [phone], [facility] 01/15/2024 16:03:58 4 SC Procedure completed Yury Delvalle MD [address] [place] [address], [address], [facility] 10/09/2023 12:39:17 Imaging Results None recorded. Procedure Notes None recorded. Medical Equipment None Reported. Allergies Allergen ID Allergen Name Allergen Category Reaction Reaction Severity Criticality Documentation Date Start Date Code Code System Note Provider Name and Address Organization Details Recorded Time 3916167 metoprolo l tartrate medicatio n edema Not available Not available 05/20/2023202119 1 RxNorm React ion: Edema ; Comme nt: Annot ation s: VIDHI S (GERI) , LELAND TY [...] Address Organization Details Last Updated DateTime 4 54646.5 8 g 52 /min 100 % 100 % 111 mm[Hg] 72 mm[Hg] Jenifer Langford [facility] 4 13:39:27 Social History None recorded. Functional Status None recorded. Mental Status None recorded. Family History Nothing Reported. Medical History No medical history recorded. Gynecological HistoryNo gynecological history recorded. Obstetrics History GPAL:G 0 P 0 0 0 0 Past Encounters Encounter ID Performer Location Encounter Start Date Encounter Closed Date Diagnosis/Indication Diagnosis SNOMED-CT Code Diagnosis ICD10 Code Diagnosis Note [id number] Yury Delvalle MD [address] [facility] ([place]) [address] [place] [address] 10/09/2023 11:51:07 10/09/2023 13:51:06 Myofascial pain syndrome 629193154 M79.18 [id number] Yury Delvalle MD [address] [facility] ([place]) [address] [place] [address] 01/15/2024 11:29:38 01/15/2024 14:36:10 Myofascial pain syndrome 206770084 M79.18 Dystonia 83167060 G24.9 [id number] [facility] ([place]) [address] [place] [phone] 01/25/2024 13:29:51 01/25/2024 14:27:40 Migraine without aura, not refractory 872504815 G43.709 Additional diagnosis detail: Chronic migraine without aura without status migrainosu s, not intractabl e Long-term current use of drug therapy 505990631 Z79.899 Additional diagnosis detail: Other long-term (current) drug therapy [id number] Hailee Lea MD [address] [facility] ([place]) [address] [place] [address] 04/08/2024 09:22:03 04/08/2024 09:49:20 Migraine without aura, not refractory 295726709 G43.709 Additional diagnosis detail: Chronic migraine without aura without status migrainosu s, not intractabl e [id number] Yury Delvalle MD [address] [facility] ([place]) [address] [place] [address] 04/08/2024 10:23:03 04/08/2024 10:59:00 Myofascial pain syndrome 040821334 M79.18 Isolated c ervical dystonia 797172127 G24.3 [id number] Yury Delvalle MD [address] [facility] ([place]) [address] [place] [address] 04/29/2024 10:34:43 04/29/2024 13:08:57 Myofascial pain syndrome 116344757 M79.18 [id number] Yury Delvalle MD [address] [facility] ([place]) [address] [place] [address] 07/22/2024 10:25:50 07/22/2024 11:25:02 Myofascial pain syndrome 829377509 M79.18 Health Concerns Section Related Observation LastModified by Organization Detai ls LastModified Time None Recorded Concern Status LastModified by Organization Details LastModified Time None Recorded Advance Directives Directive None Recorded Payers Encounter Date Sequence Insurance Name Policy Number Policy Jasso Covered Member ID Jasso Member ID Guarantor Name 01/25/2024 1 [facility] ON OR AFTER 10/18/20 (MEDICAID REPLACEMENT - HMO) Katelyn Wilson Ramon [id number] Katelyn Wilson Ramon 04/08/2024 1 [facility] ON OR AFTER 10/18/20 (MEDICAID REPLACEMENT - HMO) Katelyn Katie Navarro [id number] Katelyn Wilson Ramon 04/08/2024 1 [facility] ON OR AFTER 10/18/20 (MEDICAID REPLACEMENT - HMO) Katelyn Katie Navarro [id number] Katelyn S Ramon 04/29/2024 1 [facility] ON OR AFTER 10/18/20 (MEDICAID REPLACEMENT - HMO) Katelyn Navarro [id number] Katelyn Katie Navarro 07/22/2024 1 [facility] ON OR AFTER 10/18/20 (MEDICAID REPLACEMENT - HMO) Katelyn Katie Navarro [id number] Katelyn S Ramon Notes Date Note Type Note Provider [...] was discontinued. Hailee Lea MD [address] [place] [address], [address], [facility] 01/26/2024 12:35:45 04/08/2024 text/html Katelyn Navarro i [...] cervical dystonia.dpk Yury Delvalle MD [address] [place] [address], [address], [facility] 04/11/2024 11:24:14 OBGyn Episode No OBEpisode recorded.
--- OUTSIDE RECORDS SUMMARY | 2024-07-25 17:43 | XMS_ITS | Referral Summary ---
Author Organization [facility] Address 1 [place] [address] Care Team Providers Care Laborer Pie Bakery Name Role Phone Vasquez Packer MD Primary Care Provide r Allergies Active Allergy Reactions Criticality Noted Date Comments Metoprolol Tartrate Swelling Medium 01/12/2018 Topiramate Other (See comments) Low 03/26/2015 [place] anxious and couldn't sleep Medications gabapentin (NEURONTIN) [...] 04/20/2020 Assessment & Plan (04/20/2020 5:27 AM ADVERTISING DISPLAY ROTATOR): Patient was hypotensive on presentation but currently normotensive. She is on lisinopril and hydrochlorothiazide 20/12.5 which will be held due to renal failure. Resume Norvasc with hold parameters. Continue to monitor. Neck pain 04/20/2020 Assessment & Plan (04/20/2020 5:28 AM ADVERTISING DISPLAY ROTATOR): Continue gabapentin and p.r.n. [place] Anxiety and depression 04/20/2020 Assessment & Plan (04/20/2020 5:28 AM ADVERTISING DISPLAY ROTATOR): Patient appears depressed and tearful. She takes p.r.n. Ativan at home 0.5 mg q.8 p.r.n. but she is on the alcohol withdrawal scale. Black stools 04/20/2020 Assessment & Plan (04/20/2020 5:37 AM ADVERTISING DISPLAY ROTATOR): On off for the last 3 days. Patient has been consuming a lot of alcohol. Will check a guaiac. Will hold anticoagulation for now until we can rule out GI bleed. Alcohol withdrawal syndrome with complication Alcohol abuse 04/19/2020 Assessment & Plan (04/20/2020 5:29 AM ADVERTISING DISPLAY ROTATOR): Patient went on an alcohol binge for [...] 04/20/2020 Assessment & Plan (04/20/2020 5:29 AM ADVERTISING DISPLAY ROTATOR): Likely secondary to the alcohol abuse and dehydration. Improved with some fluids but still elevated. Will repeat and continue to monitor. Acute renal failure 04/20/2020 04/20/19 21 Assessment & Plan (04/20/2020 5:30 AM ADVERTISING DISPLAY ROTATOR): No baseline creatinine available. Suspected is acute kidney injury due to prerenal causes as patient was dehydrated with low normal blood pressures on presentation. Hold all nephrotoxins including lisinopril and hydrochlorothiazide until baseline can be determined. Hypokalemia 04/20/2020 04/20/2020 Assessment & Plan (04/20/2020 5:30 AM ADVERTISING DISPLAY ROTATOR): Continue to monitor replace as needed. Patient [...] on file Legal Sex Female 10:41 PM ADVERTISING DISPLAY ROTATOR Gender Identity Not on file Sexual Orientation Not on file Last Filed Vital Signs Vital Sign Reading Time Taken Comments Blood Pressure 118/77 07/23/2021 11:23 AM CDT Pulse 79 07/23/2021 11:23 AM CDT Temperature 37 C (98.6 F) 04/23/2020 3:00 PM ADVERTISING DISPLAY ROTATOR Respiratory Rate 16 04/23/2020 3:00 PM ADVERTISING DISPLAY ROTATOR Oxygen Saturation 98% 04/23/2020 3:00 PM ADVERTISING DISPLAY ROTATOR Inhaled Oxygen Concentration - - Weight 67.6 kg (149 lb) 07/23/2021 11:23 AM CDT Height 165.1 cm (5' 5 ) 07/23/2021 11:23 AM CDT Body Mass Index 24.79 07/23/2021 11:23 AM CDT Plan of Treatment Not on file Insurance [facility] Advance Directives For more information, please contact: [phone] * LIMITED - No CPR (Latest Code [...] 7:41 PM 04/20/2020 5:26 AM Care Teams Laborer Pie Bakery Relationship Specialty Start Date End Date Vasquez Packer MD [address] [place] [address] PCP - General 04/19/20
--- OUTSIDE RECORDS SUMMARY | 2024-07-25 17:43 | XMS_ITS | Clinical Summary ---
Author Organization [facility] Address [address] [place] [address] Care Team Providers Care Fire Regulator Name Role Phone Vasquez Packer MD Primary Care Provide r Allergies Active Allergy Reactions Criticality Noted Date Comments Metoprolol Tartrate Swelling Medium 01/12/2018 Topiramate Other (See comments) Low 03/26/2015 [place] anxious and couldn't sleep Medications gabapentin (NEURONTIN) [...] 04/20/2020 Assessment & Plan (04/20/2020 5:27 AM RESIDENT CARE ASSISTANT): Patient was hypotensive on presentation but currently normotensive. She is on lisinopril and hydrochlorothiazide 20/12.5 which will be held due to renal failure. Resume Norvasc with hold parameters. Continue to monitor. Neck pain 04/20/2020 Assessment & Plan (04/20/2020 5:28 AM RESIDENT CARE ASSISTANT): Continue gabapentin and p.r.n. [place] Anxiety and depression 04/20/2020 Assessment & Plan (04/20/2020 5:28 AM RESIDENT CARE ASSISTANT): Patient appears depressed and tearful. She takes p.r.n. Ativan at home 0.5 mg q.8 p.r.n. but she is on the alcohol withdrawal scale. Black stools 04/20/2020 Assessment & Plan (04/20/2020 5:37 AM RESIDENT CARE ASSISTANT): On off for the last 3 days. Patient has been consuming a lot of alcohol. Will check a guaiac. Will hold anticoagulation for now until we can rule out GI bleed. Alcohol withdrawal syndrome with complication Alcohol abuse 04/19/2020 Assessment & Plan (04/20/2020 5:29 AM RESIDENT CARE ASSISTANT): Patient went on an alcohol binge for [...] 04/20/2020 Assessment & Plan (04/20/2020 5:29 AM RESIDENT CARE ASSISTANT): Likely secondary to the alcohol abuse and dehydration. Improved with some fluids but still elevated. Will repeat and continue to monitor. Acute renal failure 04/20/2020 04/20/19 21 Assessment & Plan (04/20/2020 5:30 AM RESIDENT CARE ASSISTANT): No baseline creatinine available. Suspected is acute kidney injury due to prerenal causes as patient was dehydrated with low normal blood pressures on presentation. Hold all nephrotoxins including lisinopril and hydrochlorothiazide until baseline can be determined. Hypokalemia 04/20/2020 04/20/2020 Assessment & Plan (04/20/2020 5:30 AM RESIDENT CARE ASSISTANT): Continue to monitor replace as needed. Patient [...] on file Legal Sex Female 10:41 PM RESIDENT CARE ASSISTANT Gender Identity Not on file Sexual Orientation Not on file Obstetrics History Last Filed Vital Signs Vital Sign Reading Time Taken Comments Blood Pressure 118/77 07/23/2021 11:23 AM CDT Pulse 79 07/23/2021 11:23 AM CDT Temperature 37 C (98.6 F) 04/23/2020 3:00 PM RESIDENT CARE ASSISTANT Respiratory Rate 16 04/23/2020 3:00 PM RESIDENT CARE ASSISTANT Oxygen Saturation 98% 04/23/2020 3:00 PM RESIDENT CARE ASSISTANT Inhaled Oxygen Concentration - - Weight 67.6 kg (149 lb) 07/23/2021 11:23 AM CDT Height 165.1 cm (5' 5 ) 07/23/2021 11:23 AM CDT Body Mass Index 24.79 07/23/2021 11:23 AM CDT Plan of Treatment Not on file Insurance [facility] Advance Directives For more information, please contact: [phone] * LIMITED - No CPR (Latest Code [...] 7:41 PM 04/20/2020 5:26 AM Care Teams Fire Regulator Relationship Specialty Start Date End Date Vasquez Packer MD [address] [place] [address] PCP - General 04/19/20
== END 2024-07-25 15:45 | disposition home or self-care (01) ==
PROVIDERS: PCP Family Medicine; Visit Provider Family Medicine
DX: M79.671 Pain in right foot (principal)
CPT/HCPCS: 36415; 73630; 80048; 84550; 85025

== ENCOUNTER 2024-09-15 10:43 | Outpatient (CLI) | payer OTHER, SELFPAY ==
--- OUTSIDE RECORDS SUMMARY | 2024-09-15 10:50 | XMS_ITS | Data Portability ---
Author Organization [facility], [address] [facility] ([place]) Address [address] [place] [address] Care Team Providers Care Junior Systems Analyst Name Role Phone LULÚ DAY Primary Care [...] on this date of service including both indc-un-wvgi and tqm-xkqd-ej-face time excluding any separately reportable services. elizabeth [...] on this date of service including both gnmk-fd-anwr and vko-gils-mj-face time excluding any separately reportable services. [email or web address] Not available 04/08/2024 11:30:12 Plan of Treatment Reminders Order Date Submit Date Provider Last Modified By Organization Details Last Modified Time Details Appointments Procedure 20.PRO 2024 09:20A M Dr. Yury Delvalle Not available Not available Not available Lab None recorded. Referral None recorded. Procedures None recorded. Surgeries None recorded. Imaging CT, head, w/o contrast 2023 024 [facility] (Radiology), [address] [place] [address] , [place], [address], 01/29/2024 14:49:42 Medication Orders Botox 100 unit injection 2023 024 [facility] [address], [address], 04/08/2024 09:36:56 Patient TargetsNo targets recorded. Patient InstructionsNo instructions recorded. Reason for Referral None Reported. Problems Name Problem SNOMED Code Status Onset Date Resolution Date Notes Provider Name and Address Organization Details Recorded Time Dystonia 68223343 Active 2023 Yury Delvalle MD [address] [place] [address], [phone], [facility] 4 14:02:32 Episodic migraine 9508379670663 06 Active 2023 Hailee Lea MD [address] [place] [address], [address], [facility] 4 13:37:09 Migraine without aura, not refractory 202015303 Active 2023 Hailee Lea MD [address] [place] [address], [address], [facility] 4 09:33:53 Isolated cervical dystonia 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 Procedures Surgical History Date Name Laterality Status Provider Name and Address Organization Details Recorded Time 5 SC Procedure completed Yury Delvalle MD [address] [place] [address], [phone], [facility] 07/22/2024 10:58:26 5 [place] Procedure completed Yury Delvalle MD [address] [place] [address], [phone], [facility] 04/29/2024 11:15:46 4 [place] Botox Procedure completed Hailee Lea MD [address] [place] [address], [phone], [facility] 04/08/2024 09:48:13 4 SC Procedure completed Yury Delvalle MD [address] [place] [address], [address], [facility] 01/15/2024 16:03:58 4 SC Procedure completed Yury Delvalle MD [address] [place] [address], [phone], [facility] 10/09/2023 12:39:17 Imaging Results None recorded. Procedure Notes None recorded. Medical Equipment None Reported. Allergies Allergen ID Allergen Name Allergen Category Reaction Reaction Severity Criticality Documentation Date Start Date Code Code System Note Provider Name and Address Organization Details Recorded Time 9232260 metoprolo l tartrate medicatio n edema Not available Not available 05/20/20232021 1 RxNorm React ion: Edema ; Comme nt: Annot billjaime s: VIDHI Wilson (GERI) , LELAND TY 2021 11:33 AM Edema of legs; ; Not Available [facility] 4 04:19:55 Medications Name Sig Start Date Stop Date [...] Available Not Available Not Available amoxicillin 875 mg-iván escobedo clavulanate 125 mg tablet 01/24 completed Not [...] Address Organization Details Last Updated DateTime 4 92140.5 8 g 52 /min 100 % 100 % 111 mm[Hg] 72 mm[Hg] Jenifer Langford [facility] 4 13:39:27 Social History None recorded. Functional Status None recorded. Mental Status None recorded. Family History Nothing Reported. Medical History No medical history recorded. Gynecological HistoryNo gynecological history recorded. Obstetrics History GPAL:G 0 P 0 0 0 0 Past Encounters Encounter ID Performer Location Encounter Start Date Encounter Closed Date Diagnosis/Indication Diagnosis SNOMED-CT Code Diagnosis ICD10 Code Diagnosis Note [id number] Yury Delvalle MD [address] [facility] ([place]) [address] [place] [address] 10/09/2023 11:51:07 10/09/2023 13:51:06 Myofascial pain syndrome 205192164 M79.18 [id number] Yury Delvalle MD [address] [facility] ([place]) [address] [place] [address] 01/15/2024 11:29:38 01/15/2024 14:36:10 Myofascial pain syndrome 869744397 M79.18 Dystonia 93685521 G24.9 [id number] Hailee Lea MD [facility] ([place]) [facility] [place] [address] 01/25/2024 13:29:51 01/25/2024 14:27:40 Migraine without aura, not refractory 524337414 G43.709 Additional diagnosis detail: Chronic migraine without aura without status migrainosu s, not intractabl e Long-term current use of drug therapy 398434868 Z79.899 Additional diagnosis detail: Other terminal operations manager (current) drug therapy [id number] Hailee Lea MD [facility] ([place]) [address] [place] [address] 04/08/2024 09:22:03 04/08/2024 09:49:20 Migraine without aura, not refractory 699583984 G43.709 Additional diagnosis detail: Chronic migraine without aura without status migrainosu s, not intractabl e [id number] Yury Delvalle MD [address] [facility] ([place]) [address] [place] [address],[address] [place] [address] 04/08/2024 10:23:03 04/08/2024 10:59:00 Myofascial pain syndrome 945016672 M79.18 Isolated c ervical dystonia 362194421 G24.3 [id number] Yury Delvalle MD [address] [facility] ([place]) [address] [place] [address],[address] [place] [address] 04/29/2024 10:34:43 04/29/2024 13:08:57 Myofascial pain syndrome 808995511 M79.18 [id number] Yury Delvalle MD [address] [facility] ([place]) [address] [place] [address],[address] [place] [address] 07/22/2024 10:25:50 07/22/2024 11:25:02 Myofascial pain syndrome 757240326 M79.18 Health Concerns Section Related Observation LastModified by Organization Detai ls LastModified Time None Recorded Concern Status LastModified by Organization Details LastModified Time None Recorded Advance Directives Directive None Recorded Payers Insurance Date Sequence Insurance Name Policy Number Policy Jasso Covered Member ID Jasso Member ID Guarantor Name 08/20/2024 1 [facility] - DOS ON OR AFTER 20 (MEDICAID REPLACEMENT - HMO) Katelyn Navarro [id number] Katelyn Navarro Notes Date Note Type Note [...] was discontinued. Hailee Lea MD [address] [place] [address], [address], [facility] 01/26/2024 12:35:45 04/08/2024 text/html Katelyn Navarro [...] proceed with Botox injections for her cervical dystonia.dudley Delvalle MD [address] [place] [address], [phone], [facility] 04/11/2024 11:24:14 OBGyn Episode No OBEpisode recorded.
--- OUTSIDE RECORDS SUMMARY | 2024-09-15 10:50 | XMS_ITS | Clinical Summary ---
Author Organization [facility] Address [address] [facility] [place] [address] Phone Care Team Providers Care Jewelry Polisher Name Role Phone Osiris Younger PAC Unavailable [phone] Vasquez Packer MD Primary Care Provider [phone] Allergies Active Allergy Reactions Criticality Noted Date Comments Metoprolol Tartrate Swelling 01/12/2018 Topiramate Other (see Comments) 03/26/2015 [place] anxious and couldn't sleep Medications amLODIPine (NORVASC) 10 MG Tablet Take 10 mg by mouth daily. Active lisinopril-hydr ochlorothiazide (PRINZIDE, ZESTORETIC) 20-12.5 MG Tablet Take 1 Tab by mouth daily. Active ergocalciferol (VITAMIN D) [address]4539 UNIT Capsule Take 50,000 Units by mouth [...] Comments Blood Pressure 130/88 06/21/2018 3:55 PM VOCATIONAL REHABILITATION ADMINISTRATOR Pulse 103 06/21/2018 3:55 PM VOCATIONAL REHABILITATION ADMINISTRATOR Temperature 37.2 C (98.9 F) 06/21/2018 3:55 PM VOCATIONAL REHABILITATION ADMINISTRATOR Respiratory Rate 16 06/21/2018 3:55 PM VOCATIONAL REHABILITATION ADMINISTRATOR Oxygen Saturation 96% 06/21/2018 3:55 PM VOCATIONAL REHABILITATION ADMINISTRATOR Inhaled Oxygen Concentration - - Weight 69.4 kg (153 lb) 06/21/2018 3:55 PM VOCATIONAL REHABILITATION ADMINISTRATOR Height 162.6 cm (5' 4) 06/21/2018 3:55 PM VOCATIONAL REHABILITATION ADMINISTRATOR Body Mass Index 26.26 06/21/2018 3:55 PM VOCATIONAL REHABILITATION ADMINISTRATOR Plan of Treatment Health Maintenance Due Date [...] Insurance MEDICAID [facility] Care Teams Jewelry Polisher Relationship Specialty Start Date End Date Vasquez Packer MD [address] [place] [address] PCP - General Pediatrics 02/26/15 Osiris Younger PAC [address] [place] [address] Physician General Assembler Installer Physician General Assembler Installer 02/26/15
--- OUTSIDE RECORDS SUMMARY | 2024-09-15 10:50 | XMS_ITS | Clinical Summary ---
Author Organization [facility] Address [address] [place] [address] Care Team Providers Care Warp Knitter Helper Name Role Phone Vasquez Packer MD Primary Care Provide r Allergies Active Allergy Reactions Criticality Noted Date Comments Metoprolol Tartrate Swelling Medium 01/12/2018 Topiramate Other (See comments) Low 03/26/2015 [place] anxious and couldn't sleep Medications gabapentin (NEURONTIN) [...] 04/20/2020 Assessment & Plan (04/20/2020 5:27 AM SALES OPERATIONS ASSISTANT): Patient was hypotensive on presentation but currently normotensive. She is on lisinopril and hydrochlorothiazide 20/12.5 which will be held due to renal failure. Resume Norvasc with hold parameters. Continue to monitor. Neck pain 04/20/2020 Assessment & Plan (04/20/2020 5:28 AM SALES OPERATIONS ASSISTANT): Continue gabapentin and p.r.n. [place] Anxiety and depression 04/20/2020 Assessment & Plan (04/20/2020 5:28 AM SALES OPERATIONS ASSISTANT): Patient appears depressed and tearful. She takes p.r.n. Ativan at home 0.5 mg q.8 p.r.n. but she is on the alcohol withdrawal scale. Black stools 04/20/2020 Assessment & Plan (04/20/2020 5:37 AM SALES OPERATIONS ASSISTANT): On off for the last 3 days. Patient has been consuming a lot of alcohol. Will check a guaiac. Will hold anticoagulation for now until we can rule out GI bleed. Alcohol withdrawal syndrome with complication Alcohol abuse 04/19/2020 Assessment & Plan (04/20/2020 5:29 AM SALES OPERATIONS ASSISTANT): Patient went on an alcohol binge [...] 04/20/2020 Assessment & Plan (04/20/2020 5:29 AM SALES OPERATIONS ASSISTANT): Likely secondary to the alcohol abuse and dehydration. Improved with some fluids but still elevated. Will repeat and continue to monitor. Acute renal failure 04/20/2020 04/20/19 21 Assessment & Plan (04/20/2020 5:30 AM SALES OPERATIONS ASSISTANT): No baseline creatinine available. Suspected is acute kidney injury due to prerenal causes as patient was dehydrated with low normal blood pressures on presentation. Hold all nephrotoxins including lisinopril and hydrochlorothiazide until baseline can be determined. Hypokalemia 04/20/2020 04/20/2020 Assessment & Plan (04/20/2020 5:30 AM SALES OPERATIONS ASSISTANT): Continue to monitor replace as needed. [...] on file Legal Sex Female 10:41 PM SALES OPERATIONS ASSISTANT Gender Identity Not on file Sexual Orientation Not on file Obstetrics History Last Filed Vital Signs Vital Sign Reading Time Taken Comments Blood Pressure 118/77 07/23/2021 11:23 AM CDT Pulse 79 07/23/2021 11:23 AM CDT Temperature 37 C (98.6 F) 04/23/2020 3:00 PM SALES OPERATIONS ASSISTANT Respiratory Rate 16 04/23/2020 3:00 PM SALES OPERATIONS ASSISTANT Oxygen Saturation 98% 04/23/2020 3:00 PM SALES OPERATIONS ASSISTANT Inhaled Oxygen Concentration - - Weight 67.6 kg (149 lb) 07/23/2021 11:23 AM CDT Height 165.1 cm (5' 5) 07/23/2021 11:23 AM CDT Body Mass Index 24.79 07/23/2021 11:23 AM CDT Plan of Treatment Not on file Insurance [facility] Advance Directives For more information, please contact: [phone] * LIMITED - No CPR (Latest Code [...] 7:41 PM 04/20/2020 5:26 AM Care Teams Warp Knitter Helper Relationship Specialty Start Date End Date Vasquez Packer MD [address] [place] [address] PCP - General 04/19/20
--- OUTSIDE RECORDS SUMMARY | 2024-09-15 10:50 | XMS_ITS | Referral Summary ---
Author Organization [facility] Address [address] [place] [address] Care Team Providers Care Meat Boner And Slicer Name Role Phone Vasquez Packer MD Primary Care Provide r Allergies Active Allergy Reactions Criticality Noted Date Comments Metoprolol Tartrate Swelling Medium 01/12/2018 Topiramate Other (See comments) Low 03/26/2015 [place] anxious and couldn't sleep Medications gabapentin (NEURONTIN) [...] 04/20/2020 Assessment & Plan (04/20/2020 5:27 AM TRUCK LEASING MANAGER): Patient was hypotensive on presentation but currently normotensive. She is on lisinopril and hydrochlorothiazide 20/12.5 which will be held due to renal failure. Resume Norvasc with hold parameters. Continue to monitor. Neck pain 04/20/2020 Assessment & Plan (04/20/2020 5:28 AM TRUCK LEASING MANAGER): Continue gabapentin and p.r.n. [place] Anxiety and depression 04/20/2020 Assessment & Plan (04/20/2020 5:28 AM TRUCK LEASING MANAGER): Patient appears depressed and tearful. She takes p.r.n. Ativan at home 0.5 mg q.8 p.r.n. but she is on the alcohol withdrawal scale. Black stools 04/20/2020 Assessment & Plan (04/20/2020 5:37 AM TRUCK LEASING MANAGER): On off for the last 3 days. Patient has been consuming a lot of alcohol. Will check a guaiac. Will hold anticoagulation for now until we can rule out GI bleed. Alcohol withdrawal syndrome with complication Alcohol abuse 04/19/2020 Assessment & Plan (04/20/2020 5:29 AM TRUCK LEASING MANAGER): Patient went on an alcohol binge for [...] 04/20/2020 Assessment & Plan (04/20/2020 5:29 AM TRUCK LEASING MANAGER): Likely secondary to the alcohol abuse and dehydration. Improved with some fluids but still elevated. Will repeat and continue to monitor. Acute renal failure 04/20/2020 04/20/19 21 Assessment & Plan (04/20/2020 5:30 AM TRUCK LEASING MANAGER): No baseline creatinine available. Suspected is acute kidney injury due to prerenal causes as patient was dehydrated with low normal blood pressures on presentation. Hold all nephrotoxins including lisinopril and hydrochlorothiazide until baseline can be determined. Hypokalemia 04/20/2020 04/20/2020 Assessment & Plan (04/20/2020 5:30 AM TRUCK LEASING MANAGER): Continue to monitor replace as needed. Patient [...] on file Legal Sex Female 10:41 PM TRUCK LEASING MANAGER Gender Identity Not on file Sexual Orientation Not on file Last Filed Vital Signs Vital Sign Reading Time Taken Comments Blood Pressure 118/77 07/23/2021 11:23 AM CDT Pulse 79 07/23/2021 11:23 AM CDT Temperature 37 C (98.6 F) 04/23/2020 3:00 PM TRUCK LEASING MANAGER Respiratory Rate 16 04/23/2020 3:00 PM TRUCK LEASING MANAGER Oxygen Saturation 98% 04/23/2020 3:00 PM TRUCK LEASING MANAGER Inhaled Oxygen Concentration - - Weight 67.6 kg (149 lb) 07/23/2021 11:23 AM CDT Height 165.1 cm (5' 5) 07/23/2021 11:23 AM CDT Body Mass Index 24.79 07/23/2021 11:23 AM CDT Plan of Treatment Not on file Insurance [facility] Advance Directives For more information, please contact: [phone] * LIMITED - No CPR (Latest Code [...] 7:41 PM 04/20/2020 5:26 AM Care Teams Meat Boner And Slicer Relationship Specialty Start Date End Date Vasquez Packer MD [address] [place] [address] PCP - General 04/19/20
[2024-09-15 11:00] LABS: Basophils Absolute Auto 0.03 K/mm3 (0.00-0.10); Basophils Percent Auto 0.3 % (0.0-1.0); Eosinophils Absolute Auto 0.09 K/mm3 (0.02-0.50); Eosinophils Percent Auto 0.9 % (1.0-6.0); Hematocrit 42.6 % (35.0-49.0); Hemoglobin 14.5 g/dL (12.0-15.0); Immature Granulocyte Absolute 0.04 K/mm3 (0.00-0.00); Immature Granulocyte Percent A 0.4 % (0.0-0.0); Lymphocytes Absolute Auto 2.56 K/mm3 (1.10-4.50); Lymphocytes Percent Auto 25.5 % (18.0-42.0); Mean Corpuscular Hemoglobin 35.9 pg (27.0-31.0); Mean Corpuscular Volume 105.4 fL (78.0-102.0); Mean Platelet Volume 9.7 fl (9.2-11.8); Monocytes Absolute Auto 0.71 K/mm3 (0.10-0.90); Monocytes Percent Auto 7.1 % (2.0-11.0); Neutrophils Absolute Auto 6.62 K/mm3 (1.70-7.20); Neutrophils Percent Auto 65.8 % (50.0-70.0); Platelet Count Result 351 K/mm3 (150-420); Red Blood Count 4.04 M/mm3 (4.20-5.40); Red Cell Distribution Width 12.4 % (11.6-14.4); White Blood Count 10.1 K/mm3 (4.8-10.8)
[2024-09-15 11:22] LABS: Creatinine Urine 81.3 mg/dL
[2024-09-15 11:24] LABS: Alanine Aminotransferase 26 U/L (6-35); Albumin Level 4.4 g/dL (3.5-5.1); Alkaline Phosphatase 134 U/L (38-126); Anion Gap 5 mmol/L (4-12); Aspartate Amino Transferase 40 U/L (14-36); Bilirubin,Total 0.8 mg/dL (0.2-1.3); Blood Urea Nitrogen 6 mg/dL (7-17); CRP 1.7 mg/dL (<1.0); Calcium 9.8 mg/dL (8.4-10.2); Carbon Dioxide 27 mmol/L (22-30); Chloride 104 mmol/L (98-107); Cholesterol 161 mg/dL (0-200); Estimated Glomerular Filt Rate > 60; Glucose 106 mg/dL (65-110); HDL Direct 77 mg/dL; LDL Cholesterol Calculated 36 mg/dL (<130); Osmolality Calculated 279 mOsm/kg (285-295); Potassium 5.1 mmol/L (3.4-5.0); Sodium 136 mmol/L (137-145); Total Protein 7.1 g/dL (6.3-8.2); Triglycerides 242 mg/dL (<150); Uric Acid 5.3 mg/dL (2.5-7.5)
[2024-09-15 11:26] LABS: MALB Creatinine Ratio 43.4 mg/g (0-30); Microalbumin Urine Random 35.3 mg/L (0-16.7)
[2024-09-15 12:04] LABS: Erythrocyte Sedimentation Rate 20 mm/hr (0-20)
== END 2024-09-15 10:44 | disposition home or self-care (01) ==
PROVIDERS: PCP Family Medicine; Visit Provider Family Medicine
DX: R21 Rash and other nonspecific skin eruption (principal); E78.2 Mixed hyperlipidemia; M10.9 Gout, unspecified
CPT/HCPCS: 36415; 80053; 80061; 82043; 84550; 85025; 85652; 86038; 86039; 86140

== ENCOUNTER 2024-09-27 10:33 | Outpatient (CLI) | payer OTHER, SELFPAY ==
[2024-09-27 11:44] LABS: Anion Gap 5 mmol/L (4-12); Blood Urea Nitrogen 8 mg/dL (7-17); Calcium 9.5 mg/dL (8.4-10.2); Carbon Dioxide 26 mmol/L (22-30); Chloride 103 mmol/L (98-107); Estimated Glomerular Filt Rate > 60; Glucose 109 mg/dL (65-110); Osmolality Calculated 277 mOsm/kg (285-295); Potassium 4.9 mmol/L (3.4-5.0); Sodium 134 mmol/L (137-145)
--- OUTSIDE RECORDS SUMMARY | 2024-09-27 11:45 | XMS_ITS | Data Portability ---
Author Organization [facility], [address] [facility]rology ([place]) Address [address] [place] [address] Care Team Providers Care Manager Client Name Role Phone LULÚ DAY Primary Care [...] on this date of service including both odss-qc-fzbt and jxf-ssqu-ft-face time excluding any separately reportable services. elizabeth [...] on this date of service including both kghk-wk-hznd and dsj-uewh-qr-face time excluding any separately reportable services. dpk [...] Imaging CT, head, w/o contrast 2023 024 [facility] (Radiology), [address] [place] [address] , [place], [address], 01/29/2024 14:49:42 Medication Orders Botox 100 unit injection 2023 024 [facility] [address], [address], 04/08/2024 09:36:56 Patient TargetsNo targets recorded. Patient InstructionsNo instructions recorded. Reason for Referral None Reported. 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 Procedures Surgical History Date Name Laterality Status Provider Name and Address Organization Details Recorded Time 5 SC Procedure completed Yury Delvalle MD [address] [place] [address], [address], [facility] 07/22/2024 10:58:26 5 SC Procedure completed Yury Delvalle MD [address] [place] [address], [address], [facility] 04/29/2024 11:15:46 4 SC Botox Procedure completed Hailee Lea MD [address] [place] [address], [address], [facility] 04/08/2024 09:48:13 4 SC Procedure completed Yury Delvalle MD [address] [place] [address], [address], [facility] 01/15/2024 16:03:58 4 SC Procedure completed Yury Delvalle MD [address] [place] [address], [address], [facility] 10/09/2023 12:39:17 Imaging Results None recorded. Procedure Notes None recorded. Medical Equipment None Reported. Allergies Allergen ID Allergen Name Allergen Category Reaction Reaction Severity Criticality Documentation Date Start Date Code Code System Note Provider Name and Address Organization Details Recorded Time 2848254 metoprolo l tartrate medicatio n edema Not available Not available 05/20/20232021 1 RxNorm React ion: Edema ; Comme nt: Annot billjaime s: VIDHI Wilson (GERI) , LELAND TY 2021 11:33 AM Edema of legs; ; Not Available [facility] 4 04:19:55 Medications Name Sig Start Date [...] Address Organization Details Last Updated DateTime 4 03503.5 8 g 52 /min 100 % 100 % 111 mm[Hg] 72 mm[Hg] Jenifer Langford [facility] 4 13:39:27 Social History None recorded. Functional Status None recorded. Mental Status None recorded. Family History Nothing Reported. Medical History No medical history recorded. Gynecological HistoryNo gynecological history recorded. Obstetrics History GPAL:G 0 P 0 0 0 0 Past Encounters Encounter ID Performer Location Encounter Start Date Encounter Closed Date Diagnosis/Indication Diagnosis SNOMED-CT Code Diagnosis ICD10 Code Diagnosis Note [id number] Yury Delvalle MD [address] [facility] ([place]) [address] [place] [address] 10/09/2023 11:51:07 10/09/2023 13:51:06 Myofascial pain syndrome 250919980 M79.18 [id number] Yury Delvalle MD [address] [facility] ([place]) [address] [place] [address] 01/15/2024 11:29:38 01/15/2024 14:36:10 Myofascial pain syndrome 124165969 M79.18 Dystonia 56937627 G24.9 [id number] Hailee Lea MD [facility] ([place]) [facility] [place] [address] 01/25/2024 13:29:51 01/25/2024 14:27:40 Migraine without aura, not refractory 965375669 G43.709 Additional diagnosis detail: Chronic migraine without aura without status migrainosu s, not intractabl e Long-term current use of drug therapy 360582750 Z79.899 Additional diagnosis detail: Other electronic semiconductor processor (current) drug therapy [id number] Hailee Lea MD [facility] ([place]) [address] [place] [address] 04/08/2024 09:22:03 04/08/2024 09:49:20 Migraine without aura, not refractory 940738431 G43.709 Additional diagnosis detail: Chronic migraine without aura without status migrainosu s, not intractabl e [id number] Yury Delvalle MD [address] [facility] ([place]) [address] [place] [address],[address] [place] [address] 04/08/2024 10:23:03 04/08/2024 10:59:00 Myofascial pain syndrome 896900232 M79.18 Isolated c ervical dystonia 350352220 G24.3 [id number] Yury Delvalle MD [address] [facility] ([place]) [address] [place] [address],[address] [place] [address] 04/29/2024 10:34:43 04/29/2024 13:08:57 Myofascial pain syndrome 485752577 M79.18 [id number] Yury Delvalle MD [address] [facility] ([place]) [address] [place] [address],[address] [place] [address] 07/22/2024 10:25:50 07/22/2024 11:25:02 Myofascial pain syndrome 701678845 M79.18 Health Concerns Section Related Observation LastModified by Organization Detai ls LastModified Time None Recorded Concern Status LastModified by Organization Details LastModified Time None Recorded Advance Directives Directive None Recorded Payers Insurance Date Sequence Insurance Name Policy Number Policy Jasso Covered Member ID Jasso Member ID Guarantor Name 08/20/2024 1 [facility] - DOS ON OR AFTER 20 (MEDICAID REPLACEMENT - HMO) Katelyn Navarro [id number] Katelyn Navarro Notes Date Note Type Note [...] was discontinued. Hailee Lea MD [address] [place] [address], [phone], [facility] 01/26/2024 12:35:45 04/08/2024 text/html Katelyn Navarro i [...] her cervical dystonia.dudley Delvalle MD [address] [place] [address], [address], [facility] 04/11/2024 11:24:14 OBGyn Episode No OBEpisode recorded.
--- OUTSIDE RECORDS SUMMARY | 2024-09-27 11:45 | XMS_ITS | Clinical Summary ---
Author Organization [facility] Address [address] [place] [address] Phone Care Team Providers Care Dredge Operator Supervisor Name Role Phone Osiris Younger PAC Unavailable [phone] Vasquez Packer MD Primary Care Provider [phone] Allergies Active Allergy Reactions Criticality Noted Date Comments Metoprolol Tartrate Swelling 01/12/2018 Topiramate Other (see Comments) 03/26/2015 [place] anxious and couldn't sleep Medications amLODIPine (NORVASC) 10 MG Tablet Take 10 mg by mouth daily. Active lisinopril-hydr ochlorothiazide (PRINZIDE, ZESTORETIC) 20-12.5 MG Tablet Take 1 Tab by mouth daily. Active ergocalciferol (VITAMIN D) 05899 UNIT Capsule Take 50,000 Units by mouth [...] Comments Blood Pressure 130/88 06/21/2018 3:55 PM WORK ORDER DETAILER Pulse 103 06/21/2018 3:55 PM WORK ORDER DETAILER Temperature 37.2 C (98.9 F) 06/21/2018 3:55 PM WORK ORDER DETAILER Respiratory Rate 16 06/21/2018 3:55 PM WORK ORDER DETAILER Oxygen Saturation 96% 06/21/2018 3:55 PM WORK ORDER DETAILER Inhaled Oxygen Concentration - - Weight 69.4 kg (153 lb) 06/21/2018 3:55 PM WORK ORDER DETAILER Height 162.6 cm (5' 4) 06/21/2018 3:55 PM WORK ORDER DETAILER Body Mass Index 26.26 06/21/2018 3:55 PM WORK ORDER DETAILER Plan of Treatment Health Maintenance Due Date Last Done Comments Hepatitis C Virus (HCV) Screening 1966 TdaP Immunization 1966 Hepatitis B Immunization (1 of 3 - 19+ 3-dose series) 1985 Cologuard 2011 Colonoscopy 2011 Colorectal Cancer Screening 2011 Immunochemical Fecal Occult Blood 2011 Pneumococcal Immunization (50+ years) (1 of 1 - PCV) 01/06/2016 Zoster Immunization (1 of 2) 01/06/2016 SARS-COV-2 Immunization (1 - 2023-) 12/20/2023 Influenza Immunization (Season Ended) 2024 01/12/2017, 02/13/2015, 02/25/2013, Additional history exists Respiratory Syncytial Virus (RSV) Immunization (Adult) (1 - 1-dose 75+ series) 2041 Human Papillomavirus (HPV) Immunization Aged Out No longer eligible based on patient's age to complete this topic Meningococcal Immunization (ACWY) Aged Out No longer eligible based on patient's age to complete this topic Rotavirus Immunization Aged Out No lo nger eligible based on patient's age to complete this topic Insurance MEDICAID [facility] [employer] Care Teams Dredge Operator Supervisor Relationship Specialty Start Date End Date Vasquez Packer MD [address] [place] [address] PCP - General Pediatrics 02/26/15 Osiris Younger PAC [address] [place] [address] Physician Office Assistant Receptionist Physician Office Assistant Receptionist 02/26/15
--- OUTSIDE RECORDS SUMMARY | 2024-09-27 11:45 | XMS_ITS | Clinical Summary ---
Author Organization [facility] Address [address] [place] [address] Care Team Providers Care Wound Nurse Name Role Phone Vasquez Packer MD Primary Care Provide r Allergies Active Allergy Reactions Criticality Noted Date Comments Metoprolol Tartrate Swelling Medium 01/12/2018 Topiramate Other (See comments) Low 03/26/2015 [place] anxious and couldn't sleep Medications gabapentin (NEURONTIN) [...] 04/20/2020 Assessment & Plan (04/20/2020 5:27 AM CAREER CENTER ADVISOR): Patient was hypotensive on presentation but currently normotensive. She is on lisinopril and hydrochlorothiazide 20/12.5 which will be held due to renal failure. Resume Norvasc with hold parameters. Continue to monitor. Neck pain 04/20/2020 Assessment & Plan (04/20/2020 5:28 AM CAREER CENTER ADVISOR): Continue gabapentin and p.r.n. [place] Anxiety and depression 04/20/2020 Assessment & Plan (04/20/2020 5:28 AM CAREER CENTER ADVISOR): Patient appears depressed and tearful. She takes p.r.n. Ativan at home 0.5 mg q.8 p.r.n. but she is on the alcohol withdrawal scale. Black stools 04/20/2020 Assessment & Plan (04/20/2020 5:37 AM CAREER CENTER ADVISOR): On off for the last 3 days. Patient has been consuming a lot of alcohol. Will check a guaiac. Will hold anticoagulation for now until we can rule out GI bleed. Alcohol withdrawal syndrome with complication Alcohol abuse 04/19/2020 Assessment & Plan (04/20/2020 5:29 AM CAREER CENTER ADVISOR): Patient went on an alcohol binge for [...] 04/20/2020 Assessment & Plan (04/20/2020 5:29 AM CAREER CENTER ADVISOR): Likely secondary to the alcohol abuse and dehydration. Improved with some fluids but still elevated. Will repeat and continue to monitor. Acute renal failure 04/20/2020 04/20/19 21 Assessment & Plan (04/20/2020 5:30 AM CAREER CENTER ADVISOR): No baseline creatinine available. Suspected is acute kidney injury due to prerenal causes as patient was dehydrated with low normal blood pressures on presentation. Hold all nephrotoxins including lisinopril and hydrochlorothiazide until baseline can be determined. Hypokalemia 04/20/2020 04/20/2020 Assessment & Plan (04/20/2020 5:30 AM CAREER CENTER ADVISOR): Continue to monitor replace as needed. Patient [...] on file Legal Sex Female 10:41 PM CAREER CENTER ADVISOR Gender Identity Not on file Sexual Orientation Not on file Obstetrics History Last Filed Vital Signs Vital Sign Reading Time Taken Comments Blood Pressure 118/77 07/23/2021 11:23 AM CDT Pulse 79 07/23/2021 11:23 AM CDT Temperature 37 C (98.6 F) 04/23/2020 3:00 PM CAREER CENTER ADVISOR Respiratory Rate 16 04/23/2020 3:00 PM CAREER CENTER ADVISOR Oxygen Saturation 98% 04/23/2020 3:00 PM CAREER CENTER ADVISOR Inhaled Oxygen Concentration - - Weight 67.6 kg (149 lb) 07/23/2021 11:23 AM CDT Height 165.1 cm (5' 5) 07/23/2021 11:23 AM CDT Body Mass Index 24.79 07/23/2021 11:23 AM CDT Plan of Treatment Not on file Insurance [facility] Advance Directives For more information, please contact: [phone] * LIMITED - No CPR (Latest Code [...] 7:41 PM 04/20/2020 5:26 AM Care Teams Wound Nurse Relationship Specialty Start Date End Date Vasquez Packer MD [address] [place] [address] PCP - General 04/19/20
--- OUTSIDE RECORDS SUMMARY | 2024-09-27 11:45 | XMS_ITS | Referral Summary ---
Author Organization [facility] Address [address] [place] [address] Care Team Providers Care Change Management Lead Name Role Phone Vasquez Packer MD Primary Care Provide r Allergies Active Allergy Reactions Criticality Noted Date Comments Metoprolol Tartrate Swelling Medium 01/12/2018 Topiramate Other (See comments) Low 03/26/2015 [place] anxious and couldn't sleep Medications gabapentin (NEURONTIN) [...] 04/20/2020 Assessment & Plan (04/20/2020 5:27 AM PIPE FITTER HELPER): Patient was hypotensive on presentation but currently normotensive. She is on lisinopril and hydrochlorothiazide 20/12.5 which will be held due to renal failure. Resume Norvasc with hold parameters. Continue to monitor. Neck pain 04/20/2020 Assessment & Plan (04/20/2020 5:28 AM PIPE FITTER HELPER): Continue gabapentin and p.r.n. [place] Anxiety and depression 04/20/2020 Assessment & Plan (04/20/2020 5:28 AM PIPE FITTER HELPER): Patient appears depressed and tearful. She takes p.r.n. Ativan at home 0.5 mg q.8 p.r.n. but she is on the alcohol withdrawal scale. Black stools 04/20/2020 Assessment & Plan (04/20/2020 5:37 AM PIPE FITTER HELPER): On off for the last 3 days. Patient has been consuming a lot of alcohol. Will check a guaiac. Will hold anticoagulation for now until we can rule out GI bleed. Alcohol withdrawal syndrome with complication Alcohol abuse 04/19/2020 Assessment & Plan (04/20/2020 5:29 AM PIPE FITTER HELPER): Patient went on an alcohol binge for [...] 04/20/2020 Assessment & Plan (04/20/2020 5:29 AM PIPE FITTER HELPER): Likely secondary to the alcohol abuse and dehydration. Improved with some fluids but still elevated. Will repeat and continue to monitor. Acute renal failure 04/20/2020 04/20/19 21 Assessment & Plan (04/20/2020 5:30 AM PIPE FITTER HELPER): No baseline creatinine available. Suspected is acute kidney injury due to prerenal causes as patient was dehydrated with low normal blood pressures on presentation. Hold all nephrotoxins including lisinopril and hydrochlorothiazide until baseline can be determined. Hypokalemia 04/20/2020 04/20/2020 Assessment & Plan (04/20/2020 5:30 AM PIPE FITTER HELPER): Continue to monitor replace as needed. Patient [...] on file Legal Sex Female 10:41 PM PIPE FITTER HELPER Gender Identity Not on file Sexual Orientation Not on file Last Filed Vital Signs Vital Sign Reading Time Taken Comments Blood Pressure 118/77 07/23/2021 11:23 AM CDT Pulse 79 07/23/2021 11:23 AM CDT Temperature 37 C (98.6 F) 04/23/2020 3:00 PM PIPE FITTER HELPER Respiratory Rate 16 04/23/2020 3:00 PM PIPE FITTER HELPER Oxygen Saturation 98% 04/23/2020 3:00 PM PIPE FITTER HELPER Inhaled Oxygen Concentration - - Weight 67.6 kg (149 lb) 07/23/2021 11:23 AM CDT Height 165.1 cm (5' 5) 07/23/2021 11:23 AM CDT Body Mass Index 24.79 07/23/2021 11:23 AM CDT Plan of Treatment Not on file Insurance [facility] Advance Directives For more information, please contact: [phone] * LIMITED - No CPR (Latest Code [...] 7:41 PM 04/20/2020 5:26 AM Care Teams Change Management Lead Relationship Specialty Start Date End Date Vasquez Packer MD [address] [place] [address] PCP - General 04/19/20
[2024-09-27 12:02] LABS: Vitamin D 25 Hydroxy 21.8 ng/mL
== END 2024-09-27 10:34 | disposition home or self-care (01) ==
LOC: CHSLAB 10:35
PROVIDERS: PCP Family Medicine; Visit Provider Family Medicine
DX: E83.42 Hypomagnesemia (principal); I10 Essential (primary) hypertension
CPT/HCPCS: 36415; 80048; 82306; 83735

== ENCOUNTER 2025-02-13 08:52 | Outpatient (CLI) | payer OTHER, SELFPAY ==
[2025-02-13 09:22] LABS: Hematocrit 40.0 % (35.0-49.0); Hemoglobin 13.6 g/dL (12.0-15.0); Immature Granulocyte Percent A 0.3 % (0.0-0.0); Lymphocytes Absolute Auto 2.48 K/mm3 (1.10-4.50); Mean Corpuscular HGB Conc 34.0 g/dL (32-36); Mean Corpuscular Hemoglobin 34.6 pg (27.0-31.0); Mean Corpuscular Volume 101.8 fL (78.0-102.0); Nucleated Red Blood Cells Absolute Auto 0.00 K/mm3 (0.00-0.00); Nucleated Red Blood Cells Perc 0.0 % (0-0.0); Platelet Count Result 297 K/mm3 (150-420); Red Blood Count 3.93 M/mm3 (4.20-5.40); White Blood Count 9.7 K/mm3 (4.8-10.8)
--- OUTSIDE RECORDS SUMMARY | 2025-02-13 09:27 | XMS_ITS | Clinical Summary ---
Author Organization [facility] Address [address] [place] [address] Care Team Providers Care Environmental Monitoring Specialist Name Role Phone Vasquez Packer MD Primary Care Provide r Allergies Active Allergy Reactions Criticality Noted Date Comments Metoprolol Tartrate Swelling Medium 01/12/2018 Topiramate Other (See comments) Low 03/26/2015 [place] anxious and couldn't sleep Medications gabapentin (NEURONTIN) [...] 04/20/2020 Assessment & Plan (04/20/2020 5:27 AM PATTERNMAKER BENCH): Patient was hypotensive on presentation but currently normotensive. She is on lisinopril and hydrochlorothiazide 20/12.5 which will be held due to renal failure. Resume Norvasc with hold parameters. Continue to monitor. Neck pain 04/20/2020 Assessment & Plan (04/20/2020 5:28 AM PATTERNMAKER BENCH): Continue gabapentin and p.r.n. [place] Anxiety and depression 04/20/2020 Assessment & Plan (04/20/2020 5:28 AM PATTERNMAKER BENCH): Patient appears depressed and tearful. She takes p.r.n. Ativan at home 0.5 mg q.8 p.r.n. but she is on the alcohol withdrawal scale. Black stools 04/20/2020 Assessment & Plan (04/20/2020 5:37 AM PATTERNMAKER BENCH): On off for the last 3 days. Patient has been consuming a lot of alcohol. Will check a guaiac. Will hold anticoagulation for now until we can rule out GI bleed. Alcohol withdrawal syndrome with complication Alcohol abuse 04/19/2020 Assessment & Plan (04/20/2020 5:29 AM PATTERNMAKER BENCH): Patient went on an alcohol binge for [...] 04/20/2020 Assessment & Plan (04/20/2020 5:29 AM PATTERNMAKER BENCH): Likely secondary to the alcohol abuse and dehydration. Improved with some fluids but still elevated. Will repeat and continue to monitor. Acute renal failure 04/20/2020 04/20/19 21 Assessment & Plan (04/20/2020 5:30 AM PATTERNMAKER BENCH): No baseline creatinine available. Suspected is acute kidney injury due to prerenal causes as patient was dehydrated with low normal blood pressures on presentation. Hold all nephrotoxins including lisinopril and hydrochlorothiazide until baseline can be determined. Hypokalemia 04/20/2020 04/20/2020 Assessment & Plan (04/20/2020 5:30 AM PATTERNMAKER BENCH): Continue to monitor replace as needed. Patient [...] on file Legal Sex Female 10:41 PM PATTERNMAKER BENCH Gender Identity Not on file Sexual Orientation Not on file Obstetrics History Last Filed Vital Signs Vital Sign Reading Time Taken Comments Blood Pressure 118/77 07/23/2021 11:23 AM CDT Pulse 79 07/23/2021 11:23 AM CDT Temperature 37 C (98.6 F) 04/23/2020 3:00 PM PATTERNMAKER BENCH Respiratory Rate 16 04/23/2020 3:00 PM PATTERNMAKER BENCH Oxygen Saturation 98% 04/23/2020 3:00 PM PATTERNMAKER BENCH Inhaled Oxygen Concentration - - Weight 67.6 kg (149 lb) 07/23/2021 11:23 AM CDT Height 165.1 cm (5' 5) 07/23/2021 11:23 AM CDT Body Mass Index 24.79 07/23/2021 11:23 AM CDT Plan of Treatment Not on file Insurance [facility] Advance Directives For more information, please contact: [phone] * LIMITED - No CPR (Latest Code [...] 7:41 PM 04/20/2020 5:26 AM Care Teams Environmental Monitoring Specialist Relationship Specialty Start Date End Date Vasquez Packer MD [address] [place] [address] PCP - General 04/19/20
--- OUTSIDE RECORDS SUMMARY | 2025-02-13 09:27 | XMS_ITS | Clinical Summary ---
Author Organization [facility] Address [address] [place] [address] Care Team Providers Care Guide Plant Name Role Phone Vasquez Packer MD Primary Care Provider [phone] Social History Tobacco Use Types Packs/Day Years [...] 4:04 PM CDT Height 165.1 cm (5' 5) 01/25/2013 4:04 PM CDT Body Mass Index 24.96 01/25/2013 4:04 PM CDT Plan of Treatment Health Maintenance Due Date Last Done Comments Cervical Cancer Screening Pap Smear (Age 30 to 64) Every 3 Years 1966 Colorectal Cancer Screening Colonoscopy (10 Years) 1966 Annual Physical 1969 Hepatitis C 01/06/1984 Cervical Cancer Screening Pap with HPV Testing (Age 30 to 64) Every 5 Years 01/06/1996 Cervical Cancer Screening with HPV 01/06/1996 Mammogram Screening 2006 Pneumococcal Vaccine: 50+ Years (1 of 1 - PCV) 01/06/2016 Zoster Vaccines (1 of 2) 01/06/2016 COVID-19 Vaccine (1 - 2024- season) 2024 Influenza Adult (#1) 2025 01/12/2017, 02/13/2015, 02/25/2013, Additional history exists DTaP, Tdap and Td Vaccines (3 - Td or Tdap) 08/10/2031 08/09/2021, 01/26/2019 Hepatitis A Vaccines Aged Out No long er eligible based on patient's age to complete this topic Meningococcal B Vaccine Aged Out No l onger eligible based on patient's age to complete this topic Meningococcal Vaccine Aged Out No melinda monique eligible based on patient's age to complete this topic RSV Immunizations Under 20 Months Aged Out No longer eligible based on patient's age to complete this topic Insurance [employer] Care Teams Guide Plant Relationship Specialty Start Date End Date Vasquez Packer MD [address] [place] [address] PCP - General FAMILY PRACTICE 02/12/24
--- OUTSIDE RECORDS SUMMARY | 2025-02-13 09:27 | XMS_ITS | Clinical Summary ---
Author Organization [facility] Address [address] [facility] [place] [address] Phone Care Team Providers Care Well Testing Operator Name Role Phone Osiris Younger PAC Unavailable [phone] Vasquez Packer MD Primary Care Provider [phone] Allergies Active Allergy Reactions Criticality Noted Date Comments Metoprolol Tartrate Swelling 01/12/2018 Topiramate Other (see Comments) 03/26/2015 [place] anxious and couldn't sleep Medications amLODIPine (NORVASC) 10 MG Tablet Take 10 mg by mouth daily. Active lisinopril-hydr ochlorothiazide (PRINZIDE, ZESTORETIC) 20-12.5 MG Tablet Take 1 Tab by mouth daily. Active ergocalciferol (VITAMIN D) 74783 UNIT Capsule Take 50,000 Units by mouth [...] Comments Blood Pressure 130/88 06/21/2018 3:55 PM REHABILITATION SERVICES AIDE Pulse 103 06/21/2018 3:55 PM REHABILITATION SERVICES AIDE Temperature 37.2 C (98.9 F) 06/21/2018 3:55 PM REHABILITATION SERVICES AIDE Respiratory Rate 16 06/21/2018 3:55 PM REHABILITATION SERVICES AIDE Oxygen Saturation 96% 06/21/2018 3:55 PM REHABILITATION SERVICES AIDE Inhaled Oxygen Concentration - - Weight 69.4 kg (153 lb) 06/21/2018 3:55 PM REHABILITATION SERVICES AIDE Height 162.6 cm (5' 4) 06/21/2018 3:55 PM REHABILITATION SERVICES AIDE Body Mass Index 26.26 06/21/2018 3:55 PM REHABILITATION SERVICES AIDE Plan of Treatment Health Maintenance Due Date Last Done Comments Hepatitis C Virus (HCV) Screening 1966 TdaP Immunization 1966 Hepatitis B Immunization (1 of 3 - 19+ 3-dose series) 1985 Cologuard 2011 Colonoscopy 2011 Colorectal Cancer Screening 2011 Immunochemical Fecal Occult Blood 2011 Pneumococcal Immunization (50+ years) (1 of 1 - PCV) 01/06/2016 Zoster Immunization (1 of 2) 01/06/2016 Influenza Immunization (#1) 12/19/202412/20, 02/13/2015, 02/25/2013, Additional history exists SARS-COV-2 Immunization ( - 2023- season) 2024 Respiratory Syncytial Virus (RSV) Immunization (Adult) (1 - 1-dose 75+ series) 2041 Human Papillomavirus (HPV) Immunization Aged Out No longer eligible based on patient's age to complete this topic Meningococcal Immunization (ACWY) Aged Out No longer eligible based on patient's age to complete this topic Rotavirus Immunization Aged Out No lo nger eligible based on patient's age to complete this topic Insurance MEDICAID [employer] [employer] Care Teams Well Testing Operator Relationship Specialty Start Date End Date Vasquez Packer MD [address] [place] [address] PCP - General Pediatrics 02/26/15 Osiris Younger PAC [address] [place] [address] Physician Toaster Element Repairer Physician Toaster Element Repairer 02/26/15
[2025-02-13 09:45] LABS: Anion Gap 10 mmol/L (4-12); Blood Urea Nitrogen 10 mg/dL (7-17); Calcium 9.8 mg/dL (8.4-10.2); Carbon Dioxide 26 mmol/L (22-30); Chloride 102 mmol/L (98-107); Cholesterol 191 mg/dL (0-200); Estimated Glomerular Filt Rate > 60; Glucose 103 mg/dL (65-110); HDL Direct 84 mg/dL; Osmolality Calculated 285 mOsm/kg (285-295); Potassium 4.6 mmol/L (3.4-5.0); Sodium 138 mmol/L (137-145); Triglycerides 250 mg/dL (<150)
== END 2025-02-13 08:53 | disposition home or self-care (01) ==
LOC: CHSLAB 08:54
PROVIDERS: PCP Family Medicine; Visit Provider Family Medicine
DX: I10 Essential (primary) hypertension (principal); E78.2 Mixed hyperlipidemia
CPT/HCPCS: 36415; 80048; 80061; 82306; 85025